=== PATIENT | female | born 1950 | race Caucasian/White ===

== ENCOUNTER 2023-02-18 09:05 | Inpatient (IN) | payer MEDICARE, SELFPAY ==
--- NOTE | ~2023-02-18 | CT_ITS ---
EXAMINATION: CT ABDOMEN AND PELVIS WITHOUT CONTRAST CLINICAL INFORMATION: Left lower quadrant abdominal pain COMPARISON: None available. TECHNIQUE: Multidetector volumetric imaging was performed from the superior aspect of the liver through the pubic symphysis. Sagittal and coronal reformatted images were obtained on the technologist's workstation. This CT examination was performed using dose optimization techniques as appropriate, variously including the following: *Automated exposure control *Adjustment of mA and/or kV according to patient size (this includes techniques or standardized protocols for targeted exams where dose is matched to indication/reason for exam; i.e. extremities or head) *Use of iterative reconstruction technique DLP: 406 mGy-cm FINDINGS: LUNG BASES: The visualized lung bases are unremarkable. LIVER, GALLBLADDER, AND BILIARY TREE: There is low-attenuation 0.9 cm lesion in the left lobe of the liver with attenuation of 3HU and 2.2 cm low-attenuation lesion in the right lobe of the liver with attenuation of 10 a few, consistent with an appearance of cysts or hemangiomas. The gallbladder is unremarkable with no evidence of radiopaque gallstones, gallbladder wall thickening, or obvious pericholecystic inflammatory changes. PANCREAS: Unremarkable. SPLEEN: There is small calcification in the upper pole of spleen most likely granuloma ADRENAL GLANDS: Unremarkable. KIDNEYS AND URETERS: The kidneys are normal in size, shape, and attenuation. No hydronephrosis, hydroureter, or calculi seen. There is calcified lesion in the lower pole of left kidney, measured 1.2 x 1.6 cm. No perinephric stranding. BLADDER: Unremarkable. GASTROINTESTINAL TRACT: Extensive inflammatory changes in the mesentery surrounding sigmoid colon and descending colon with multiple diverticuli consistent with diverticulitis. Microabscess couldn't be excluded. There is no obvious perforation seen. There is large amount of retained feces. Small bowel loops are not dilated and appendix is normal. ABDOMINAL WALL: No significant hernia is appreciated. LYMPH NODES: Normal. VASCULAR: There are atherosclerotic calcifications in abdominal aorta which is not dilated. PELVIC VISCERA: Difficult to evaluate uterus due to inflammatory changes in the surrounding fat extending from extensive diverticulitis. OSSEOUS STRUCTURES: There are extensive multilevel degenerative changes in lumbar spine with grade 1 anterior listhesis of L5 over S1 and bilateral pars defect. There is patchy osteopenia CT/CT abdomen pelvis wo IV con IMPRESSION: 1. Extensive diverticulitis in the descending colon and sigmoid colon. Microabscess couldn't be excluded. 2. Constipation. 3. Calcified lesion in the lower pole of left kidney. 4. 2 cysts or hemangiomas in the liver. 5. Degenerative changes in lumbar spine with grade 1 anterolisthesis of L5 over S1 and bilateral pars defect at L5-S1. Fleischner guidelines were followed.
[2023-02-18 09:35] VITALS: BP 164/67; PULSE 70; RESP 17; TEMP 36.4; O2SAT 99; BMI 22.8
[2023-02-18 09:54] LABS: MANUAL DIFF FLAG NO
[2023-02-18 10:10] LABS: Basophils Absolute Auto 0.1 X10*3/uL (0.0-0.2); Basophils Percent Auto 0.6 % (0-2); Eosinophils Absolute Auto 0.1 X10*3/uL (0.0-0.4); Eosinophils Percent Auto 1.1 % (0-4); Hematocrit 37.6 % (37.0-47.0); Hemoglobin 12.5 g/dl (12.0-16.0); Imm Gran Abs Auto 0.04 X10*3/uL (0.00-0.03); Imm Gran Pct Auto 0.5 % (0.0-0.4); Lymphocytes Absolute Auto 1.8 X10*3/uL (1.2-4.9); Lymphocytes Percent Auto 21.6 % (20-40); Mean Corpuscular HGB Conc 33.2 g/dl (31.0-35.0); Mean Corpuscular Hemoglobin 30.9 pg (27.0-33.0); Mean Corpuscular Volume 92.8 fL (80.0-98.0); Mean Platelet Volume 11.8 fL (9.4-12.3); Monocytes Absolute Auto 0.7 X10*3/uL (0.1-1.2); Monocytes Percent Auto 8.7 % (2-11); Neutrophils Absolute Auto 5.7 x10*3/uL (2.0-8.3); Neutrophils Percent Auto 67.5 % (45-73); Platelet Count 252 X10*3/uL (160-400); Red Blood Count 4.05 X10*6/uL (4.20-5.50); Red Cell Distribution Width 12.2 % (11.0-16.0); White Blood Count 8.4 X10*3/uL (4.8-10.8)
[2023-02-18 10:11] LABS: Alanine Aminotransferase 10 U/L (0-31); Alkaline Phosphatase 90 U/L (39-117); Anion Gap 16 (12-20); Aspartate Amino Transferase 18 U/L (5-31); Bilirubin Total 0.3 mg/dL (0.0-1.0); Blood Urea Nitrogen 11 mg/dL (9-16); Calcium 10.4 mg/dL (8.4-10.2); Carbon Dioxide 23 mmol/L (22-29); Chloride 107 mmol/L (96-108); Creatinine Clr Calc Pharmacy 61.8; Estimated Glomerular Filt Rate > 60; Glucose Random 105 mg/dL (60-115); Potassium 3.7 mmol/L (3.3-5.1); Sodium 142 mmol/L (135-145); Total Protein 7.9 g/dL (6.5-8.0)
--- NOTE | 2023-02-18 10:26 | ED_ITS ---
HPI - General Adult General Chief complaint: General Medical Stated complaint: constipation Time Seen by Provider: 02/18/23 10:04 Source: patient Mode of arrival: ambulatory Limitations: no limitations History of Present Illness HPI narrative: 72-year-old female came in for evaluation of left lower quadrant abdominal pain and decreases bowel . Symptoms started 8-10 days ago pain is localized to the left lower quadrant area with no radiation, patient with history of IBS. patient also did not have a regular normal bowel movement last bowel movement was this a.m. described as a few drops, patient was instructed by her PCP to take laxative which she did had a small bowel movement after. No nausea, no vomiting, no dysuria, no urinary frequency. Related Data Allergies Allergy/AdvReac Type Severity Reaction Status Date / Time latex Allergy hives Unverified 02/18/23 09:44 Review of Systems 2 Review of Systems: All other systems are reviewed and are negative Constitutional: Reports as per HPI and Reports no additional constitutional complaints Eyes: Reports as per HPI and Reports no additional eye complaints Reports system reviewed and no additional complaints, except as documented Cardiovascular: Reports as per HPI and Reports no additional cardiovascular complaints Respiratory: Reports as per HPI and Reports no additional respiratory complaints Gastrointestinal: Reports as per HPI and Reports no additional gastrointestinal complaints Genitourinary: Reports no additional female genitourinary complaints Musculoskeletal: Reports no additional musculoskeletal complaints Skin/Breast: Reports system reviewed and no additional complaints, except as docu Psychiatric: Reports no additional psychiatric complaints Endocrine: Reports no additional endocrine complaints Hematologic/Lymphatic: Reports no additional hematologic/lymphatic complaints Allergic/Immunologic: Reports no additional allergic/immunologic complaints Reports system reviewed and no additional complaints, except as documented and Reports Abnormal speech present [facility] Social History Social History Advance Directives: No Advance Directives Information Provided: No Physical Exam ED Vital Signs: Vital Signs - 24 hr 02/18/23 09:35 02/18/23 11:54 Temperature 97.6 F 97.7 F Pulse Rate 70 66 Respiratory Rate 17 16 Blood Pressure 164/67 H 162/66 H Pulse Oximetry 99 99 Oxygen Delivery Method Room Air Room Air BMI result Body Mass Index 22.8 Vital signs have been reviewed and appear to be correct. Blood pressure elevated. Heart rate normal. Respiratory rate normal. Temperature normal. Oxygen saturation normal. Appearance: Alert. Oriented X3. No acute distress. Head: Normal external exam. Normocephalic. Atraumatic. No Roland signs noted. No raccoon eyes noted Eyes: PERRLA. EOMI. Conjunctiva and sclera normal. Eyelids normal. ENT: TM's Normal. Pharynx normal. Uvula midline. Moist mucous membranes. No trismus noted. No drooling noted. No muffled voice noted. Neck: Normal inspection. Neck supple. FROM. No adenopathy. Thyroid Normal. No meningeal signs. No neck mass noted. CVS: Normal heart rate and rhythm. Heart sound normal. No murmurs noted. Pulses normal throughout. Respiratory: No respiratory distress. Painless inspiration. Breath sounds normal. No wheezes/rales/rhonchi noted. Chest nontender. No accessory muscle usage noted or decreased air movement noted. Abdomen: Soft and nontender. Bowel sounds normal in all 4 quadrants. No distention noted. No organomegaly noted. No visible injury noted. Rectal exam: No hard stool in the vault, brown stool guaiac negative. Back: No CVA tenderness. Full range of motion noted. Skin: Skin warm and dry. Normal skin color. Normal skin turgor. No rashes/lesions/lacerations noted. Extremities: No lower extremity edema. Extremities exhibit normal range of motion. Extremities nontender. Neuro: Oriented X 3. Cranial nerve exam: II-XII are grossly intact No motor deficit. No sensory deficit. Reflexes normal. Course Reevaluation(s) Reevaluation #1: worsening of abdominal pain for the past 8-10 days with decreased bowel movement, CT is revealing acute diverticulitis. Given the patient's age will admit for IV Zosyn and IV hydration and pain control. No sepsis. Time: 13:01 Medical Decision Making Differential Diagnosis Differential Diagnoses: The differential diagnosis associated with the presentation includes ( Colitis, diverticulitis, bowel obstruction, constipation, electrolyte abnormality, severe anemia, sepsis.) Admission/Observation Consideration of admission/observation: Escalation of care including admission/observation considered Consult Healthcare Provider Management of the patient was discussed with: Hospitalist (Dr. alvarado) Lab Data MDM Lab Attestation statement: I reviewed the patient's lab results. 02/18/23 09:50 02/18/23 09:50 Labs: Lab Results 02/18/23 02/18/23 Range/Units 09:50 10:23 WBC 8.4 (4.8-10.8) X10*3/uL RBC 4.05 L (4.20-5.50) X10*6/uL Hgb 12.5 (12.0-16.0) g/dl Hct 37.6 (37.0-47.0) % MCV 92.8 (80.0-98.0) fL MCH 30.9 (27.0-33.0) pg MCHC 33.2 (31.0-35.0) g/dl RDW 12.2 (11.0-16.0) % Plt Count 252 (160-400) X10*3/uL MPV 11.8 (9.4-12.3) fL Immature Gran % (Auto) 0.5 H (0.0-0.4) % Neut % (Auto) 67.5 (45-73) % Lymph % (Auto) 21.6 (20-40) % Hall % (Auto) 8.7 (2-11) % Eos % (Auto) 1.1 (0-4) % Baso % (Auto) 0.6 (0-2) % Lymph # (Auto) 1.8 (1.2-4.9) X10*3/uL Hall # (Auto) 0.7 (0.1-1.2) X10*3/uL Eos # (Auto) 0.1 (0.0-0.4) X10*3/uL Baso # (Auto) 0.1 (0.0-0.2) X10*3/uL Abs Immat Gran (auto) 0.04 H (0.00-0.03) X10*3/uL Absolute Neuts (auto) 5.7 (2.0-8.3) x10*3/uL Absolute Nucleated RBC 0.000 (0.0-0.012) X10*3/uL Nucleated RBC % (auto) 0.0 (0.0-0.2) /100WBC Sodium 142 (135-145) mmol/L Potassium 3.7 (3.3-5.1) mmol/L Chloride 107 (96-108) mmol/L Carbon Dioxide 23 (22-29) mmol/L Anion Gap 16 (12-20) BUN 11 (9-16) mg/dL Creatinine 0.68 (0.5-1.4) mg/dL Estim Creat Clear Calc 61.8 Estimated GFR > 60 Random Glucose 105 (60-115) mg/dL Calcium 10.4 H (8.4-10.2) mg/dL Total Bilirubin 0.3 (0.0-1.0) mg/dL AST 18 (5-31) U/L ALT 10 (0-31) U/L Alkaline Phosphatase 90 (39-117) U/L Total Protein 7.9 (6.5-8.0) g/dL Albumin 4.0 (3.5-5.0) g/dL Stool Occult Blood NEGATIVE (NEGATIVE) Independent Interpretation I performed an independent interpretation of an: CT Scan ( Abdomen pelvis: Sigmoid diverticulitis) Radiology Impression Discussion of test interpretation with radiology: I have reviewed the radiologist's reading. (1. Extensive diverticulitis in the descending colon and sigmoid colon. Microabscess couldn't be excluded. 2. Constipation. 3. Calcified lesion in the lower pole of left kidney. 4. 2 cysts or hemangiomas in the liver. 5. Degenerative changes in lumbar spine with grade 1 anterolisthesis of L5 ove) Discharge Plan Discharge Clinical Impression: Diverticulitis Patient Disposition: Admitted As Inpatient
[2023-02-18 10:44] LABS: OBS Int Ctl Valid YES; OBS1 NEGATIVE (NEGATIVE)
[2023-02-18 11:54] VITALS: BP 162/66; PULSE 66; RESP 16; TEMP 36.5; O2SAT 99
--- NOTE | 2023-02-18 11:56 | PC.NURSE ---
resting quietly in room, respirations even and unlabored. reporting cramping on and off in her abdomen, worse after eating and early in the morning. at this time, the pain is controlled. reading a magazine awaiting results of CT scan.
--- NOTE | 2023-02-18 13:38 | PM.IMHP ---
History of Present Illness Date of Service: 02/18/23 <JOSE ANTONIO Mccain - Last Filed: 02/18/23 13:51> Attending physician on admission: Cyrus Burdick <JOSE ANTONIO Mccain - Last Filed: 02/18/23 13:51> Chief Complaint: abd pain, constipation <JOSE ANTONIO Mccain - Last Filed: 02/18/23 13:51> 72-year-old female with history of hyperlipidemia and irritable bowel syndrome presented to the ED earlier today for evaluation of severe abdominal pain and constipation ongoing for about 8 days. She states she started taking laxatives in symptoms had initially resolved but about 4 days ago recurred. She has been experiencing severe bilateral lower abdominal pain that is no localized primarily in the left lower quadrant with associated abdominal bloating, anorexia, and ongoing constipation. She has been taking laxatives with small bowel movements without any reprieve in symptoms. She rates the pain as a 10/10 without any radiation. Denies any fevers or chills. No nausea or vomiting. Denies any melena or hematochezia. On arrival, p CT of the abdomen/pelvis shows extensive diverticulitis in the descending colon sigmoid colon with microabscesses not to be excluded. There is also constipation. atient hypertensive to 162/66, vitals otherwise normal. There is no leukocytosis. Renal function and electrolyte levels are normal. Stool occult blood is negative. In the ED has received 1 L IV NS, ketorolac, and IV Zosyn. She declines any opioid treatment. <JOSE ANTONIO Mccain - Last Filed: 02/18/23 13:51> Review of Systems Review of Systems: General: No fevers, malaise, unintentional weight loss HEENT: No blurred vision, diplopia. No sore throat, nasal congestion, rhinorrhea, sinus pain, ear pain Cardiovascular: No chest pain, palpitations, or leg edema Respiratory: No shortness of breath, wheezing, cough GI: +abd pain, +constipation. No nausea, vomiting, diarrhea, melena, hematochezia : No dysuria, hematuria, increased urinary frequency, decreased urinary output MSK: No myalgia, back pain Neuro: No headaches, weakness, paresthesias Skin: No rashes or lesions <JOSE ANTONIO Mccain Last Filed: 02/18/23 13:51> [facility] Medical History: Medical History (Updated 02/18/23 @ 13:46 by JOSE ANTONIO Mccain) IBS (irritable bowel syndrome) Hyperlipemia <JOSE ANTONIO Mccain - Last Filed: 02/18/23 13:51> Social History: Social History Household Members: Spouse Housing: House Do you presently have visiting nurse or other home services: No Patient Tobacco Use Status: Never used Tobacco Use of substances other than those prescribed or required for medical reasons: No Currently Displaying Signs/Symptoms of Drug Intoxication Withdrawal: No Have you been hit, kicked, punched, or otherwise hurt by someone within the past year? If so, by whom?: No Do you feel safe in your current relationship?: Yes Is there a partner from a previous relationship who is making you feel unsafe now?: No Are you made to feel afraid or neglected: No Advance Directives: No Advance Directives Information Provided: No Do you have thoughts of harming others: None Do you have a plan to hurt others: No Plan Recently lost weight without trying: No Eating poorly because of decreased appetite: Yes Nutrition Risks: Poor intake 0-25% >4 days Patient : No : No Poor oral hygiene: No <JOSE ANTONIO Mccain - Last Filed: 02/18/23 13:51> Meds Allergies/Adverse reactions: Allergies Allergy/AdvReac Type Severity Reaction Status Date / Time latex Allergy hives Unverified 02/18/23 09:44 <JOSE ANTONIO Mccain - Last Filed: 02/18/23 13:51> Active Medications: Current Medications Acetaminophen (Acetaminophen 325 Mg Tablet) 650 mg PO Q6H PRN PRN Reason: Pain, Mild (Pain Scale 1-3) Heparin Sodium (Porcine) (Heparin Sodium,Porcine 5,000 Unit/Ml Vial) 5,000 unit SUBCUT Q12H ZHENG Sodium Chloride (Ns) 1,000 mls @ 999 mls/hr IV .Q1H1M ONE Stop: 02/18/23 13:58 Piperacillin Sod/Tazobactam (Sod 4.5 gm/ Sodium Chloride) 100 mls @ 200 mls/hr IV Q6H ZHENG Ketorolac Tromethamine (Ketorolac Tromethamine 15 Mg/Ml Vial) 15 mg IVPUSH Q6H PRN PRN Reason: Pain, Moderate(Pain Scale 4-6) Ondansetron HCl (Ondansetron Hcl 4 Mg/2 Ml Vial) 4 mg IVPUSH Q8H PRN PRN Reason: Nausea and Vomiting Sodium Chloride (0.9 % Sodium Chloride Flush 3 Ml Syringe) 3 ml IVFLUSH QSHIFT ZHENG <JOSE ANTONIO Mccain - Last Filed: 02/18/23 13:51> Home medications: Home Medications Medication Instructions Recorded Confirmed Last Taken Type atorvastatin 10 mg tablet 10 mg PO DAILY 02/18/23 02/18/23 Unknown History dicyclomine 20 mg tablet 20 mg PO Q6H 02/18/23 02/18/23 Unknown History <JOSE ANTONIO Mccain - Last Filed: 02/18/23 13:51> Physical Exam Vital Signs and Narrative: Vital Signs: Last Vital Signs Temp 97.7 F 02/18/23 11:54 Pulse 66 02/18/23 11:54 Resp 16 02/18/23 11:54 BP 162/66 H 02/18/23 11:54 Pulse Ox 99 02/18/23 11:54 O2 Del Method Room Air 02/18/23 11:54 BMI result Body Mass Index 22.8 <JOSE ANTONIO Mccain - Last Filed: 02/18/23 13:51> Constitutional - Awake and Alert, No apparent distress Eyes - PERRLA, EOMI Cardiovascular - S1S2, RRR, No edema Respiratory - Normal lung expansion, Normal respiratory effort, No respiratory distress, CTA bilaterally Gastrointestinal - moderate distension with diffuse ttp greatest in LLQ, +BS; No rebound or guarding Extremities - no calf tenderness bilaterally, no swelling Skin - Warm/Dry Neurological - Alert & oriented x3 Psychological - Appropriate affect <JOSE ANTONIO Mccain - Last Filed: 02/18/23 13:51> Results Labs CBC and Chem 7: 02/18/23 09:50 02/19/23 06:13 <JOSE ANTONIO Mccain - Last Filed: 02/18/23 13:51> Labs: Laboratory Results - last 24 hr 02/18/23 02/18/23 09:50 10:23 MCV 92.8 MCH 30.9 MCHC 33.2 RDW 12.2 Plt Count 252 MPV 11.8 Immature Gran % (Auto) 0.5 H Neut % (Auto) 67.5 Lymph % (Auto) 21.6 Osborne % (Auto) 8.7 Eos % (Auto) 1.1 Baso % (Auto) 0.6 Lymph # (Auto) 1.8 Osborne # (Auto) 0.7 Eos # (Auto) 0.1 Baso # (Auto) 0.1 Abs Immat Gran (auto) 0.04 H Absolute Neuts (auto) 5.7 Absolute Nucleated RBC 0.000 Nucleated RBC % (auto) 0.0 Anion Gap 16 Estim Creat Clear Calc 61.8 Estimated GFR > 60 Random Glucose 105 Calcium 10.4 H Total Bilirubin 0.3 AST 18 ALT 10 Alkaline Phosphatase 90 Total Protein 7.9 Albumin 4.0 Stool Occult Blood NEGATIVE <JOSE ANTONIO Mccain - Last Filed: 02/18/23 13:51> Imaging Radiologist's Impressions: Impressions Abdomen/Pelvis CT 02/18/23 10:55 IMPRESSION: 1. Extensive diverticulitis in the descending colon and sigmoid colon. Microabscess couldn't be excluded. 2. Constipation. 3. Calcified lesion in the lower pole of left kidney. 4. 2 cysts or hemangiomas in the liver. 5. Degenerative changes in lumbar spine with grade 1 anterolisthesis of L5 over S1 and bilateral pars defect at L5-S1. Fleischner guidelines were followed. <JOSE ANTONIO Mccain - Last Filed: 02/18/23 13:51> Assessment and Plan (1) Diverticulitis: Status: Acute <JOSE ANTONIO Mccain - Last Filed: 02/18/23 13:51> 72-year-old female with history of hyperlipidemia and irritable bowel syndrome admitted for further management of extensive diverticulitis with microabscesses and intractable pain # acute diverticulitis with probable micro abscesses -CT abdomen/pelvis shows extensive diverticulitis of the sigmoid and descending colon, micro abscesses cannot be excluded -IV Zosyn -IV Ketoralac for pain. Patient refuses opioid therapy -ondansetron p.r.n. -senna, MiraLax for constipation -clear liquid diet -general surgery consult given probable micro abscesses -no leukocytosis, no sepsis # hyperlipidemia -continue statin # IBS -hold dicyclomine for now DVT prophylaxis-Lovenox Full code Patient requires at least 2 midnights for inpatient stay due to extensive diverticulitis with micro abscesses and intractable pain requiring IV antibiotics and expert consultation <JOSE ANTONIO Mccain - Last Filed: 02/18/23 13:51> 72-year-old female with history of hyperlipidemia and irritable bowel syndrome admitted for further management of extensive diverticulitis with microabscesses and intractable pain # acute diverticulitis with probable micro abscesses -CT abdomen/pelvis shows extensive diverticulitis of the sigmoid and descending colon, micro abscesses cannot be excluded -IV Zosyn -IV Ketoralac for pain. Patient refuses opioid therapy -ondansetron p.r.n. -senna, MiraLax for constipation -clear liquid diet -general surgery consult given probable micro abscesses -no leukocytosis, no sepsis # hyperlipidemia -continue statin # IBS -hold dicyclomine for now DVT prophylaxis-Lovenox Full code Patient requires at least 2 midnights for inpatient stay due to extensive diverticulitis with micro abscesses and intractable pain requiring IV antibiotics and expert consultation Addendum to history and physical by the advanced practice provider, JOSE ANTONIO Eckert I interviewed and examined the patient. I discussed their presentation and management with the SHREYAS. I reviewed the history and physical and agree with the documentation, with the following additions and corrections: 72yo F with IBS presenting with abd pain, found to have extensive diverticulitis with likely microabscesses. Plan admit to M/S, give IV pip-kevin, clears. <Cyrus Burdick MD - Last Filed: 02/19/23 10:17> Time Spent With Patient Time: Total time managing care of this patient today ____ minutes. <JOSE ANTONIO Mccain - Last Filed: 02/18/23 13:51> Quality Stroke Does the patient have a stroke diagnosis?: No <JOSE ANTONIO Mccain - Last Filed: 02/18/23 13:51> VTE Prior VTE?: No <JOSE ANTONIO Mccain - Last Filed: 02/18/23 13:51> VTE Risk Level:: Medical - moderate - high <JOSE ANTONIO Mccain - Last Filed: 02/18/23 13:51> VTE Device Contraindication: Treatment Not Indicated <JOSE ANTONIO Mccain - Last Filed: 02/18/23 13:51> VTE Drug Contraindication: N/A - Med Ordered <JOSE ANTONIO Mccain - Last Filed: 02/18/23 13:51>
--- NOTE | 2023-02-18 13:40 | PHA.MEDREC ---
Pharmacy Consult ? Medication Reconciliation Pharmacy has completed the medication reconciliation. spoke with patient to confirm medications. She reports not taking any medications today. She has the Dicyclomine with her today.
--- NOTE | 2023-02-18 13:45 | PHA.MEDREC ---
Pharmacy Consult ? Medication Reconciliation [facility] reviewed Pharmacy has completed the medication reconciliation.
[2023-02-18] MEDS: Ketorolac Tromethamine 15 MG/ML VIAL IVPUSH ×2 (14:01→20:28)
[2023-02-18] MEDS: 0.9 % Sodium Chloride 1,000 ML 999 ML IV (14:01)
[2023-02-18] MEDS: Piperacillin Sodium/Tazobactam 4.5 GM in 0.9 % Sodium Chloride 100 ML IV ×2 (14:01→20:35)
[2023-02-18] MEDS: Heparin Sodium,Porcine 5,000 UNIT/ML VIAL 5000 UNIT SUBCUT (14:01)
[2023-02-18 15:04] VITALS: BP 164/59; PULSE 61; RESP 16; TEMP 36.5; O2SAT 97
[2023-02-18 16:23] LABS: C Reactive Protein 9.41 mg/dL (< or = 0.50)
[2023-02-18 17:58] VITALS: BP 143/62; PULSE 55; RESP 18; TEMP 36.8; O2SAT 97
[2023-02-18] MEDS: 0.9 % Sodium Chloride Flush 3 ML SYRINGE IVFLUSH ×2 (18:42→20:27)
--- NOTE | 2023-02-18 19:11 | PM.CNGS ---
History of Present Illness Consult details Consult date: 02/18/23 Narrative: Patient is 70-year-old female with no prior history of diverticulitis of presents here with approximately 8-10 days of progressive worsening left-sided abdominal pain. She thought this was a gastroenteritis and because of persistence of symptoms, finding presented emergency department for further evaluation. Patient has a history of irritable bowel syndrome. Last colonoscopy was in 2018 she thinks. She does not recall any unusual diets or any sick contacts. Her symptoms have mainly localized to the left lower quadrant. Chart was reviewed patient evaluated CT scan findings are consistent with left colon diverticulitis. [facility] Past Medical History Medical History (Updated 02/18/23 @ 13:46 by JOSE ANTONIO Mccain) IBS (irritable bowel syndrome) Hyperlipemia Social History Social History Household Members: Spouse Housing: House Do you presently have visiting nurse or other home services: No Patient Tobacco Use Status: Never used Tobacco Use of substances other than those prescribed or required for medical reasons: No Have you been hit, kicked, punched, or otherwise hurt by someone within the past year? If so, by whom?: No Do you feel safe in your current relationship?: Yes Is there a partner from a previous relationship who is making you feel unsafe now?: No Are you made to feel afraid or neglected: No Advance Directives: No Advance Directives Information Provided: No Do you have thoughts of harming others: None Do you have a plan to hurt others: No Plan Recently lost weight without trying: No Eating poorly because of decreased appetite: Yes Nutrition Risks: Poor intake 0-25% >4 days Patient : No : No Poor oral hygiene: No Meds Allergies Allergy/AdvReac Type Severity Reaction Status Date / Time latex Allergy hives Unverified 02/18/23 09:44 Active Medications: Current Medications Acetaminophen (Acetaminophen 325 Mg Tablet) 650 mg PO Q6H PRN PRN Reason: Pain, Mild (Pain Scale 1-3) Atorvastatin Calcium (Atorvastatin Calcium 10 Mg Tablet) 10 mg PO DAILY ZHENG Heparin Sodium (Porcine) (Heparin Sodium,Porcine 5,000 Unit/Ml Vial) 5,000 unit SUBCUT Q12H ZHENG Last Admin: 02/18/23 14:01 Dose: 5,000 unit Piperacillin Sod/Tazobactam (Sod 4.5 gm/ Sodium Chloride) 100 mls @ 200 mls/hr IV Q6H [facility] Last Infusion: 02/18/23 15:16 Dose: Infused Ketorolac Tromethamine (Ketorolac Tromethamine 15 Mg/Ml Vial) 15 mg IVPUSH Q6H PRN PRN Reason: Pain, Moderate(Pain Scale 4-6) Last Admin: 02/18/23 14:01 Dose: 15 mg Ondansetron HCl (Ondansetron Hcl 4 Mg/2 Ml Vial) 4 mg IVPUSH Q8H PRN PRN Reason: Nausea and Vomiting Polyethylene Glycol (Polyethylene Glycol 3350 17 Gm Powd.Pack) 17 gm PO DAILY PRN PRN Reason: Constipation Senna (Sennosides 8.6 Mg Tablet) 17.2 mg PO BEDTIME [facility] Sodium Chloride (0.9 % Sodium Chloride Flush 3 Ml Syringe) 3 ml IVFLUSH QSHIFT [facility] Last Admin: 02/18/23 18:42 Dose: 3 ml Home Medications Medication Instructions Recorded Confirmed Last Taken Type atorvastatin 10 mg tablet 10 mg PO DAILY 02/18/23 02/18/23 Unknown History dicyclomine 20 mg tablet 20 mg PO Q6H 02/18/23 02/18/23 Unknown History Physical Exam Vital Signs: Vital Signs: Last Vital Signs Temp 98.2 F 02/18/23 17:58 Pulse 55 02/18/23 17:58 Resp 18 02/18/23 17:58 BP 143/62 H 02/18/23 17:58 Pulse Ox 97 02/18/23 17:58 O2 Del Method Room Air 02/18/23 17:58 BMI result Body Mass Index 22.8 GI: Other: Moderate left lower quadrant tenderness localized. No evidence of any acute abdomen guarding rebound or rigidity. Results Labs 02/18/23 09:50 02/18/23 09:50 Labs: Abnormal lab results 02/18/23 Range/Units 09:50 RBC 4.05 L (4.20-5.50) X10*6/uL Immature Gran % (Auto) 0.5 H (0.0-0.4) % Abs Immat Gran (auto) 0.04 H (0.00-0.03) X10*3/uL Calcium 10.4 H (8.4-10.2) mg/dL C-Reactive Protein 9.41 H (< or = 0.50) mg/dL Short CBC 02/18/23 Range/Units 09:50 WBC 8.4 (4.8-10.8) X10*3/uL Hgb 12.5 (12.0-16.0) g/dl Hct 37.6 (37.0-47.0) % Plt Count 252 (160-400) X10*3/uL BMP 02/18/23 09:50 Sodium 142 Potassium 3.7 Chloride 107 Carbon Dioxide 23 BUN 11 Creatinine 0.68 Calcium 10.4 H Liver Function 02/18/23 Range/Units 09:50 Total Bilirubin 0.3 (0.0-1.0) mg/dL AST 18 (5-31) U/L ALT 10 (0-31) U/L Alkaline Phosphatase 90 (39-117) U/L Albumin 4.0 (3.5-5.0) g/dL All other labs normal. Assessment and Plan (1) Diverticulitis: Status: Acute Plan Current plan is the patient is being admitted. Clear liquids, broad-spectrum IV antibiotics, serial labs and exams. Further interventions and studies will be directed by the patient's clinical course. Time Spent With Patient Time: Total time managing care of this patient today ____ minutes. Procedures Date of Service Date of Service: 02/18/23
[2023-02-18 20:00] VITALS: BP 155/71; PULSE 57; RESP 20; TEMP 36; O2SAT 99
[2023-02-18] MEDS: Sennosides 8.6 MG TABLET 17.2 MG PO (20:27)
[2023-02-18 22:19] LABS: Appearance Urine Clear; Color Urine Yellow; Glucose Urine UA Negative (Negative); Leukocyte Esterase Urine Negative (Negative); Nitrite Urine Negative (Negative); UMIC TRIGGER UACC YES; Urine Blood Moderate (2+) (Negative); Urine Ketones Negative (Negative); Urine Protein Negative (Neg-Trace)
[2023-02-18 22:40] LABS: Bacteria Urine None Seen (None Seen); Hyaline Casts Urine 0-2 /LPF (0-2); RBC Urine >20 /HPF (0-2); Squamous Epithelial Cell Urine 0-2 /HPF (0-2); WBC Urine 0-5 /HPF (0-5)
[2023-02-19 03:00] VITALS: BP 129/63; PULSE 52; RESP 18; TEMP 36.5; O2SAT 95
[2023-02-19] MEDS: Piperacillin Sodium/Tazobactam 4.5 GM in 0.9 % Sodium Chloride 100 ML IV ×4 (03:03→19:55)
[2023-02-19 07:30] LABS: Alanine Aminotransferase 10 U/L (0-31); Albumin Level 3.3 g/dL (3.5-5.0); Alkaline Phosphatase 69 U/L (39-117); Anion Gap 14 (12-20); Aspartate Amino Transferase 15 U/L (5-31); Bilirubin Total 0.4 mg/dL (0.0-1.0); Blood Urea Nitrogen 8 mg/dL (9-16); Calcium 8.9 mg/dL (8.4-10.2); Carbon Dioxide 22 mmol/L (22-29); Chloride 111 mmol/L (96-108); Creatinine Clr Calc Pharmacy 67.8; Estimated Glomerular Filt Rate > 60; Glucose Random 93 mg/dL (60-115); Potassium 3.5 mmol/L (3.3-5.1); Sodium 143 mmol/L (135-145); Total Protein 6.3 g/dL (6.5-8.0)
[2023-02-19 07:35] VITALS: BP 138/63; PULSE 55; RESP 16; TEMP 36.5; O2SAT 97
[2023-02-19] MEDS: 0.9 % Sodium Chloride Flush 3 ML SYRINGE IVFLUSH (08:17)
[2023-02-19] MEDS: Atorvastatin Calcium 10 MG TABLET PO (08:24)
--- NOTE | 2023-02-19 10:17 | P.PNIM_ITS ---
Subjective Subjective Date of Service: 02/19/23 Interval History: C/o LLQ pain, discomfort, anorexia. Review of Systems Review of Systems: Yes all other systems are reviewed and are negative Physical Exam 2 Vital Signs: Vital Signs: Last Vital Signs Temp 97.7 F 02/19/23 07:35 Pulse 55 02/19/23 07:35 Resp 16 02/19/23 07:35 BP 138/63 02/19/23 07:35 Pulse Ox 97 02/19/23 07:35 O2 Del Method Room Air 02/19/23 07:35 BMI result Body Mass Index 22.8 Gen: in no acute distress HEENT: sclera anicteric, moist mucus membranes Neck: supple Lungs: clear to auscultation bilaterally Heart: regular rate and rhythm, no murmurs Abd: soft, LLQ tender, non-distended Ext: no edema Skin: warm/well-perfused Neuro: alert and oriented x3, no focal findings Psych: appropriate affect Objective Data Active Medications Acetaminophen (Acetaminophen 325 Mg Tablet) 650 mg PO Q6H PRN PRN Reason: Pain, Mild (Pain Scale 1-3) Atorvastatin Calcium (Atorvastatin Calcium 10 Mg Tablet) 10 mg PO DAILY [facility] Last Admin: 02/19/23 08:24 Dose: 10 mg Documented By: CANDICE Heparin Sodium (Porcine) (Heparin Sodium,Porcine 5,000 Unit/Ml Vial) 5,000 unit SUBCUT Q12H [facility] Last Admin: 02/19/23 01:54 Dose: Not Given Documented By: JOAN Non-Admin Reason: pt refused, pt ambulates independently Piperacillin Sod/Tazobactam (Sod 4.5 gm/ Sodium Chloride) 100 mls @ 200 mls/hr IV Q6H [facility] Last Infusion: 02/19/23 09:14 Dose: Infused Documented By: CANDICE Ketorolac Tromethamine (Ketorolac Tromethamine 15 Mg/Ml Vial) 15 mg IVPUSH Q6H PRN PRN Reason: Pain, Moderate(Pain Scale 4-6) Last Admin: 02/18/23 20:28 Dose: 15 mg Documented By: JOAN Ondansetron HCl (Ondansetron Hcl 4 Mg/2 Ml Vial) 4 mg IVPUSH Q8H PRN PRN Reason: Nausea and Vomiting Polyethylene Glycol (Polyethylene Glycol 3350 17 Gm Powd.Pack) 17 gm PO DAILY PRN PRN Reason: Constipation Senna (Sennosides 8.6 Mg Tablet) 17.2 mg PO BEDTIME [facility] Last Admin: 02/18/23 20:27 Dose: 17.2 mg Documented By: JOAN Sodium Chloride (0.9 % Sodium Chloride Flush 3 Ml Syringe) 3 ml IVFLUSH QSHIFT [facility] Last Admin: 02/19/23 08:17 Dose: 3 ml Documented By: CANDICE Labs 02/18/23 09:50 02/19/23 06:13 Labs: Laboratory Results - last 24 hr 02/18/23 02/18/23 02/18/23 09:50 10: 22:11 Anion Gap Estim Creat Clear Calc Estimated GFR Random Glucose Calcium Total Bilirubin AST ALT Alkaline Phosphatase C-Reactive Protein 9.41 H Total Protein Albumin Urine Color Yellow Urine Appearance Clear Urine pH 7.0 Ur Specific [place] 1.010 Urine Protein Negative Urine Glucose (UA) Negative Urine Ketones Negative Urine Blood Moderate (2+) H Urine Nitrite Negative Ur Leukocyte Esterase Negative Urine RBC >20 H Urine WBC 0-5 Ur Squamous Epith Cells 0-2 Urine Bacteria None Seen Hyaline Casts 0-2 Stool Occult Blood NEGATIVE 02/19/23 06:13 Anion Gap 14 Estim Creat Clear Calc 67.8 Estimated GFR > 60 Random Glucose 93 Calcium 8.9 D Total Bilirubin 0.4 AST 15 ALT 10 Alkaline Phosphatase 69 C-Reactive Protein Total Protein 6.3 L Albumin 3.3 L Urine Color Urine Appearance Urine pH Ur Specific [place] Urine Protein Urine Glucose (UA) Urine Ketones Urine Blood Urine Nitrite Ur Leukocyte Esterase Urine RBC Urine WBC Ur Squamous Epith Cells Urine Bacteria Hyaline Casts Stool Occult Blood Assessment and Plan (1) Diverticulitis: Status: Acute Plan d2 72yo F with IBS, HLD admitted for extensive sigmoid/descending colon diverticulitis with likely microabscesses acute diverticulitis - pip-kevin d2, clear liquid diet, IV fluids, outpt GI eval for colonoscopy HLD - statin VTE ppx - LMWH dispo - eventual home In my clinical judgment, the patient requires continued inpatient hospitalization for the following reasons: IV ABX, IV fluids Time Spent With Patient Time: Total time managing care of this patient today ___35_ minutes. Quality Stroke Does the patient have a stroke diagnosis?: No VTE Prior VTE?: No VTE Risk Level:: Medical - moderate - high VTE Device Contraindication: Treatment Not Indicated VTE Drug Contraindication: N/A - Med Ordered
[2023-02-19] MEDS: Lactated Ringers 1,000 ML 80 ML IVCONT ×2 (11:23→23:26)
[2023-02-19] MEDS: Enoxaparin Sodium 40 MG/0.4 ML SYRINGE SUBCUT (11:23)
--- NOTE | 2023-02-19 14:41 | P.PNGS_ITS ---
Subjective Subjective Date of Service: 02/19/23 Interval history: Abdominal symptoms much improved. Passing some flatus and stool. Physical Exam 2 Vital Signs: Vital Signs: Last Vital Signs Temp 97.7 F 02/19/23 07:35 Pulse 55 02/19/23 07:35 Resp 16 02/19/23 07:35 BP 138/63 02/19/23 07:35 Pulse Ox 97 02/19/23 07:35 O2 Del Method Room Air 02/19/23 07:35 BMI result Body Mass Index 22.8 GI: Other: Abdomen soft. Very minimal left lower quadrant tenderness. Much improved from yesterday. Objective Data Active Medications Acetaminophen (Acetaminophen 325 Mg Tablet) 650 mg PO Q6H PRN PRN Reason: Pain, Mild (Pain Scale 1-3) Atorvastatin Calcium (Atorvastatin Calcium 10 Mg Tablet) 10 mg PO DAILY [facility] Last Admin: 02/19/23 08:24 Dose: 10 mg Documented By: CANDICE Enoxaparin Sodium (Enoxaparin Sodium 40 Mg/0.4 Ml Syringe) 40 mg SUBCUT Q24H [facility] Last Admin: 02/19/23 11:23 Dose: 40 mg Documented By: CANDICE Piperacillin Sod/Tazobactam (Sod 4.5 gm/ Sodium Chloride) 100 mls @ 200 mls/hr IV Q6H [facility] Last Admin: 02/19/23 14:20 Dose: 200 mls/hr Documented By: CANDICE Lactated Ringer's (Lr) 1,000 mls @ 80 mls/hr IVCONT .[id number] [facility] Last Admin: 02/19/23 11:23 Dose: 80 mls/hr Documented By: CANDICE Ketorolac Tromethamine (Ketorolac Tromethamine 15 Mg/Ml Vial) 15 mg IVPUSH Q6H PRN PRN Reason: Pain, Moderate(Pain Scale 4-6) Last Admin: 02/18/23 20:28 Dose: 15 mg Documented By: JOAN Ondansetron HCl (Ondansetron Hcl 4 Mg/2 Ml Vial) 4 mg IVPUSH Q8H PRN PRN Reason: Nausea and Vomiting Polyethylene Glycol (Polyethylene Glycol 3350 17 Gm Powd.Pack) 17 gm PO DAILY PRN PRN Reason: Constipation Senna (Sennosides 8.6 Mg Tablet) 17.2 mg PO BEDTIME [facility] Last Admin: 02/18/23 20:27 Dose: 17.2 mg Documented By: JOAN Sodium Chloride (0.9 % Sodium Chloride Flush 3 Ml Syringe) 3 ml IVFLUSH QSHIFT [facility] Last Admin: 02/19/23 08:17 Dose: 3 ml Documented By: CANDICE Labs 02/18/23 09:50 02/19/23 06:13 Labs: Laboratory Results - last 24 hr 02/18/23 02/18/23 02/19/23 09:50 22:11 06:13 Anion Gap 14 Estim Creat Clear Calc 67.8 Estimated GFR > 60 Random Glucose 93 Calcium 8.9 D Total Bilirubin 0.4 AST 15 ALT 10 Alkaline Phosphatase 69 C-Reactive Protein 9.41 H Total Protein 6.3 L Albumin 3.3 L Urine Color Yellow Urine Appearance Clear Urine pH 7.0 Ur Specific [place] 1.010 Urine Protein Negative Urine Glucose (UA) Negative Urine Ketones Negative Urine Blood Moderate (2+) H Urine Nitrite Negative Ur Leukocyte Esterase Negative Urine RBC >20 H Urine WBC 0-5 Ur Squamous Epith Cells 0-2 Urine Bacteria None Seen Hyaline Casts 0-2 Procedures Date of Service Date of Service: 02/19/23 Progress Note: A&P Assessment and plan (1) Diverticulitis: Status: Acute Plan Continue current plan; IV antibiotics, sips p.o. liquids, out of bed, incentive spirometry, serial labs and exams. Time Spent With Patient Time: Total time managing care of this patient today ____ minutes. Quality Stroke Does the patient have a stroke diagnosis?: No VTE Prior VTE?: No VTE Risk Level:: Medical - moderate - high VTE Device Contraindication: Treatment Not Indicated VTE Drug Contraindication: N/A - Med Ordered
--- NOTE | 2023-02-19 15:41 | MHC.CM.PN ---
PT REPORTS SHE LIVES WITH HER AND IS INDEPENDENT WITH CARE SHE HAS NO DME AND NO HOME SERVICES PT REPORTS SHE THINKS SHE HAS A HCP, SHE WILL HAVE HER CHECK PCP: JOSE IVERSON IMM DELIVERED DCP: HOME NO SERVICES CAR IS IN LOT
[2023-02-19 15:45] VITALS: BP 136/65; PULSE 53; RESP 16; TEMP 36.1; O2SAT 97
[2023-02-19] MEDS: Sennosides 8.6 MG TABLET 17.2 MG PO (19:57)
[2023-02-19 20:00] VITALS: BP 163/69; PULSE 51; RESP 18; TEMP 36.3; O2SAT 98
[2023-02-20] MEDS: Piperacillin Sodium/Tazobactam 4.5 GM in 0.9 % Sodium Chloride 100 ML IV ×2 (01:42→08:03)
[2023-02-20 04:00] VITALS: BP 136/64; PULSE 54; RESP 18; TEMP 36.3; O2SAT 96
[2023-02-20 07:06] VITALS: BP 155/69; PULSE 59; RESP 18; TEMP 36.6; O2SAT 97
--- NOTE | 2023-02-20 07:54 | P.PNGS_ITS ---
Subjective Subjective Date of Service: 02/20/23 Interval history: Feeling overall much improved. Currently denies abdominal pain. Tolerating liquids and feels hungry. Had soft formed stool yesterday. Physical Exam 2 Vital Signs: Vital Signs: Last Vital Signs Temp 97.9 F 02/20/23 07:06 Pulse 59 02/20/23 07:06 Resp 18 02/20/23 07:06 BP 155/69 H 02/20/23 07:06 Pulse Ox 97 02/20/23 07:06 O2 Del Method Room Air 02/20/23 07:06 BMI result Body Mass Index 22.8 Const: General: comfortable, no acute distress and alert O rientation/consciousness: patient oriented x3 Resp: Effort & Inspection: normal respiratory effort GI: Inspection: No distended Palpation (GI): Soft to palpation, Tenderness to palpation present (GI) (very mild LLQ), no guarding and not rigid P ercussion: Yes normal to percussion Skin: General skin exam: no rashes or lesions noted Neuro: General: patient oriented x3 and moves all extremities Objective Data Active Medications Acetaminophen (Acetaminophen 325 Mg Tablet) 650 mg PO Q6H PRN PRN Reason: Pain, Mild (Pain Scale 1-3) Atorvastatin Calcium (Atorvastatin Calcium 10 Mg Tablet) 10 mg PO DAILY [facility] Last Admin: 02/19/23 08:24 Dose: 10 mg Documented By: CANDICE Enoxaparin Sodium (Enoxaparin Sodium 40 Mg/0.4 Ml Syringe) 40 mg SUBCUT Q24H [facility] Last Admin: 02/19/23 11:23 Dose: 40 mg Documented By: CANDICE Piperacillin Sod/Tazobactam (Sod 4.5 gm/ Sodium Chloride) 100 mls @ 200 mls/hr IV Q6H [facility] Last Infusion: 02/20/23 02:44 Dose: Infused Documented By: CRISTIN Lactated Ringer's (Lr) 1,000 mls @ 80 mls/hr IVCONT .[id number] [facility] Last Admin: 02/19/23 23:26 Dose: 80 mls/hr Documented By: CRISTIN Ketorolac Tromethamine (Ketorolac Tromethamine 15 Mg/Ml Vial) 15 mg IVPUSH Q6H PRN PRN Reason: Pain, Moderate(Pain Scale 4-6) Last Admin: 02/18/23 20:28 Dose: 15 mg Documented By: JOAN Ondansetron HCl (Ondansetron Hcl 4 Mg/2 Ml Vial) 4 mg IVPUSH Q8H PRN PRN Reason: Nausea and Vomiting Polyethylene Glycol (Polyethylene Glycol 3350 17 Gm Powd.Pack) 17 gm PO DAILY PRN PRN Reason: Constipation Senna (Sennosides 8.6 Mg Tablet) 17.2 mg PO BEDTIME [facility] Last Admin: 02/19/23 19:57 Dose: 17.2 mg Documented By: CRISTIN Sodium Chloride (0.9 % Sodium Chloride Flush 3 Ml Syringe) 3 ml IVFLUSH QSHIFT [facility] Last Admin: 02/19/23 23:56 Dose: Not Given Documented By: CRISTIN Non-Admin Reason: IV Running Labs 02/18/23 09:50 02/19/23 06:13 Procedures Date of Service Date of Service: 02/20/23 Progress Note: A&P Assessment and plan (1) Diverticulitis: Status: Acute Plan 72 year old female admitted with sigmoid diverticulitis. Doing well and improving with nonoperative measures. Cont IV abx, advance to solid diet. If tolerating without worsening abd pain, stable for dc to home from surgical standpoint with PO abx. Time Spent With Patient Time: Total time managing care of this patient today ____ minutes. Quality Stroke Does the patient have a stroke diagnosis?: No VTE Prior VTE?: No VTE Risk Level:: Medical - moderate - high VTE Device Contraindication: Treatment Not Indicated VTE Drug Contraindication: N/A - Med Ordered
[2023-02-20] MEDS: 0.9 % Sodium Chloride Flush 3 ML SYRINGE IVFLUSH (08:03)
[2023-02-20] MEDS: Atorvastatin Calcium 10 MG TABLET PO (08:03)
--- NOTE | 2023-02-20 11:36 | P.DS_ITS ---
DS: Providers Provider Date of Service: 02/20/23 Date of admission: 02/18/23 13:31 Date of discharge: 02/20/23 Primary care physician: Madyson Martinez MD Consults: 02/18/23 13:36 Consult to General Surgery Routine Consulting Provider: [facility] General Surgeons Reason for consultation: diverticulitis, microabscesses DS: Diagnosis Discharge Diagnosis (1) Diverticulitis: Status: Acute DS: Summary Hospital Course Hospital Course: From the history and physical by the admitting hospitalist, JOSE ANTONIO Eckert, 02/18/23: 72-year-old female with history of hyperlipidemia and irritable bowel syndrome presented to the ED earlier today for evaluation of severe abdominal pain and constipation ongoing for about 8 days. She states she started taking laxatives in symptoms had initially resolved but about 4 days ago recurred. She has been experiencing severe bilateral lower abdominal pain that is no localized primarily in the left lower quadrant with associated abdominal bloating, anorexia, and ongoing constipation. She has been taking laxatives with small bowel movements without any reprieve in symptoms. She rates the pain as a 10/10 without any radiation. Denies any fevers or chills. No nausea or vomiting. Denies any melena or hematochezia. On arrival, p CT of the abdomen/pelvis shows extensive diverticulitis in the descending colon sigmoid colon with microabsc esses not to be excluded. There is also constipation. atient hypertensive to 162/66, vitals otherwise normal. There is no leukocytosis. Renal function and electrolyte levels are normal. Stool occult blood is negative. In the ED has received 1 L IV NS, ketorolac, and IV Zosyn. She declines any opioid treatment. 72yo F with IBS and HLD admitted for extensive sigmoid/descending colon divert iculitis with likely microabscesses. She was treated with IV fluids, piperacillin-tazobactam, and clear liquid diet. She was advanced to solids, then discharged home on amoxicillin-clavulanate. She will need outpatient Gastroenterology evaluation for colonoscopy. Time Spent with Patient Time attestation: Total time managing care of this patient today __35__ minutes. Discharge coordination time: Greater than 30 minutes Quality: Safe Use of Opioids Does Pt have an Active Cancer Diagnosis on the Problem List?: No Quality: Stroke Does the patient have a stroke diagnosis?: No Physical Exam Vital Signs: Vital Signs: Last Vital Signs Temp 97.9 F 02/20/23 07:06 Pulse 59 02/20/23 07:06 Resp 18 02/20/23 07:06 BP 155/69 H 02/20/23 07:06 Pulse Ox 97 02/20/23 07:06 O2 Del Method Room Air 02/20/23 07:06 BMI result Body Mass Index 22.8 Gen: in no acute distress HEENT: sclera anicteric, moist mucus membranes Neck: supple Lungs: clear to auscultation bilaterally Heart: regular rate and rhythm, no murmurs Abd: soft, non-tender, non-distended Ext: no edema Skin: warm/well-perfused Neuro: alert and oriented x3, no focal findings Psych: appropriate affect DS: Data Data Completed and Pending Completed studies during hospitalization [Text1]: Laboratory Results WBC 8.4 X10*3/uL (4.8-10.8) 02/18/23 09:50 RBC 4.05 X10*6/uL (4.20-5.50) L 02/18/23 09:50 Hgb 12.5 g/dl (12.0-16.0) 02/18/23 09:50 Hct 37.6 % (37.0-47.0) 02/18/23 09:50 MCV 92.8 fL (80.0-98.0) 02/18/23 09:50 MCH 30.9 pg (27.0-33.0) 02/18/23 09:50 MCHC 33.2 g/dl (31.0-35.0) 02/18/23 09:50 RDW 12.2 % (11.0-16.0) 02/18/23 09:50 Plt Count 252 X10*3/uL (160-400) 02/18/23 09:50 MPV 11.8 fL (9.4-12.3) 02/18/23 09:50 Immature Gran % (Auto) 0.5 % (0.0-0.4) H 02/18/23 09:50 Neut % (Auto) 67.5 % (45-73) 02/18/23 09:50 Lymph % (Auto) 21.6 % (20-40) 02/18/23 09:50 [place] % (Auto) 8.7 % (2-11) 02/18/23 09:50 Eos % (Auto) 1.1 % (0-4) 02/18/23 09:50 Baso % (Auto) 0.6 % (0-2) 02/18/23 09:50 Lymph # (Auto) 1.8 X10*3/uL (1.2-4.9) 02/18/23 09:50 [place] # (Auto) 0.7 X10*3/uL (0.1-1.2) 02/18/23 09:50 Eos # (Auto) 0.1 X10*3/uL (0.0-0.4) 02/18/23 09:50 Baso # (Auto) 0.1 X10*3/uL (0.0-0.2) 02/18/23 09:50 Abs Immat Gran (auto) 0.04 X10*3/uL (0.00-0.03) H 02/18/23 09:50 Absolute Neuts (auto) 5.7 x10*3/uL (2.0-8.3) 02/18/23 09:50 Absolute Nucleated RBC 0.000 X10*3/uL (0.0-0.012) 02/18/23 09:50 Nucleated RBC % (auto) 0.0 /100WBC (0.0-0.2) 02/18/23 09:50 Sodium 143 mmol/L (135-145) 02/19/23 06:13 Potassium 3.5 mmol/L (3.3-5.1) 02/19/23 06:13 Chloride 111 mmol/L (96-108) H 02/19/23 06:13 Carbon Dioxide 22 mmol/L (22-29) 02/19/23 06:13 Anion Gap 14 (12-20) 02/19/23 06:13 BUN 8 mg/dL (9-16) L 02/19/23 06:13 Creatinine 0.62 mg/dL (0.5-1.4) 02/19/23 06:13 Estim Creat Clear Calc 67.8 02/19/23 06:13 Estimated GFR > 60 02/19/23 06:13 Random Glucose 93 mg/dL (60-115) 02/19/23 06:13 Calcium 8.9 mg/dL (8.4-10.2) D 02/19/23 06:13 Total Bilirubin 0.4 mg/dL (0.0-1.0) 02/19/23 06:13 AST 15 U/L (5-31) 02/19/23 06:13 ALT 10 U/L (0-31) 02/19/23 06:13 Alkaline Phosphatase 69 U/L (39-117) 02/19/23 06:13 C-Reactive Protein 9.41 mg/dL (< or = 0.50) H 02/18/23 09:50 Total Protein 6.3 g/dL (6.5-8.0) L 02/19/23 06:13 Albumin 3.3 g/dL (3.5-5.0) L 02/19/23 06:13 Urine Color Yellow 02/18/23 22:11 Urine Appearance Clear 02/18/23 22:11 Urine pH 7.0 (5.0-9.0) 02/18/23 22:11 Ur Specific [place] 1.010 (1.005-1.025) 02/18/23 22:11 Urine Protein Negative mg/dL (Neg-Trace) 02/18/23 22:11 Urine Glucose (UA) Negative mg/dL (Negative) 02/18/23 22:11 Urine Ketones Negative mg/dL (Negative) 02/18/23 22:11 Urine Blood Moderate (2+) (Negative) H 02/18/23 22:11 Urine Nitrite Negative (Negative) 02/18/23 22:11 Ur Leukocyte Esterase Negative (Negative) 02/18/23 22:11 Urine RBC >20 /HPF (0-2) H 02/18/23 22:11 Urine WBC 0-5 /HPF (0-5) 02/18/23 22:11 Ur Squamous Epith Cells 0-2 /HPF (0-2) 02/18/23 22:11 Urine Bacteria None Seen (None Seen) 02/18/23 22:11 Hyaline Casts 0-2 /LPF (0-2) 02/18/23 22:11 Stool Occult Blood NEGATIVE (NEGATIVE) 02/18/23 10:23 Impressions Abdomen/Pelvis CT 02/18/23 10:55 IMPRESSION: 1. Extensive diverticulitis in the descending colon and sigmoid colon. Microabscess couldn't be excluded. 2. Constipation. 3. Calcified lesion in the lower pole of left kidney. 4. 2 cysts or hemangiomas in the liver. 5. Degenerative changes in lumbar spine with grade 1 anterolisthesis of L5 over S1 and bilateral pars defect at L5-S1. Fleischner guidelines were followed. Discharge Plan Discharge Anticipated Discharge Date/Time: 02/20/23 11:27 Patient Disposition: Home, Self-Care Discharge Diagnosis: acute diverticulitis Referrals: Madyson Martinez MD [Primary Care Provider] - 1 Week Brooke Feldman MD [Physician] - 2 Weeks Discharge Medications: New amoxicillin-pot clavulanate 875-125 mg tablet 1 tab PO BID Qty: 10 0RF Continued atorvastatin 10 mg tablet 10 mg PO DAILY dicyclomine 20 mg tablet 20 mg PO Q6H Discharge Orders: Discharge Order (Routine); Ordered 02/20/23 Ordered By: Cyrus Burdick Diet: Advance to usual diet Activity on Discharge: As tolerated Stand Alone Forms: Patient Portal Discharge page Care Plan Goals: recovery from diverticulitis Health Concerns: diverticulitis Plan of Treatment: amoxicillin-clavulanate 875-125 mg twice daily for 5 days follow up with [facility] Gastroenterology [Dr Feldman] in 2 weeks- consider colonoscopy Please follow up with your primary care doctor within 1 week. Return to the hospital if you experience recurrent or worsening symptoms. Assessment: See Discharge Summary.
--- NOTE | 2023-02-20 13:37 | MHC.CM.PN ---
Pt is medically cleared for DC. She is going home via her family, self care.
== END 2023-02-20 14:18 | disposition home or self-care (01) | DRG 392 ==
LOC: HO.ED 13:00 → HO.EDOVER 13:40 → HO.S3 16:34
PROVIDERS: Admitting Provider Physician Assistant; Emergency Provider Emergency Medicine; PCP Internal Medicine; Visit Provider Family Medicine
DX: K57.20 Diverticulitis of large intestine with perforation and abscess without bleeding (principal); E78.5 Hyperlipidemia, unspecified; K58.9 Irritable bowel syndrome, unspecified; Z91.040 Latex allergy status; Z79.899 Other long term (current) drug therapy
CPT/HCPCS: 36415; 74176; 80053; 81001; 82272; 85025; 86140; 99285; J1643; J1650; J1885; J2543

== ENCOUNTER → 2023-02-18 13:31 | Outpatient (BNV) | payer MEDICARE, SELFPAY | PROVIDERS: Admitting Provider Physician Assistant; Emergency Provider Emergency Medicine; PCP Internal Medicine; Visit Provider Surgery | DX: K57.92 Diverticulitis of intestine, part unspecified, without perforation or abscess without bleeding (principal) | CPT/HCPCS: 99222; 99232 ==

== ENCOUNTER → 2023-02-18 13:31 | Outpatient (BNV) | payer MEDICARE, SELFPAY | PROVIDERS: Admitting Provider Physician Assistant; Emergency Provider Emergency Medicine; PCP Internal Medicine; Visit Provider Physician Assistant | DX: K57.92 Diverticulitis of intestine, part unspecified, without perforation or abscess without bleeding (principal) | CPT/HCPCS: 99223; 99232; 99239 ==

== ENCOUNTER 2023-03-08 13:15 | Outpatient (AMB) | payer MEDICARE, SELFPAY ==
--- NOTE | 2023-03-08 13:17 | MHC.OFFVIS ---
Intake Vital Signs 03/08/23 13:21 Height 5 ft 2 in Weight 125 lb 10.616 oz BMI 23.0 BP 162/65 H Blood Pressure Location Lt brachial Position Sitting Pulse 61 Intake Visit Reasons: Diverticulitis, ED follow up Intake Note: Sheyla presents in the office as a ED Follow up. CC: She was diagnosed with Diverticulitis in the ED. She states they are also questioning some colon issues. Allergies latex Allergy (Unverified 02/18/23 09:44) hives narcotics Allergy (Mild, Uncoded 03/08/23 13:22) unkno HPI HPI Comments History of Present Illness Details This is a 72y.o F with no significant PMH who is here to establish care after hospitalization for acute diverticulitis. To recap pt was seen in the ER for persistent LLQ with constipation ongoing for almost 8 days and was found to have acute diverticulitis involving the left side of the colon. With this no fevers or chills. Was admitted to the hospital for 2 days and then discharged on PO Augmentin. Reports persistent cramping for many days despite completing Abx but now back to baseline. Worries if she has to restrict her diet and activity due to this. Last colo 2017 (Dr Curtis) - was given a 10y interval per her recall. Does not remember being told about diverticulosis in the past. No fam hx of CRC in FDRs. PFSH Medical History (Updated 02/28/23 @ 00:02 by Anusha Dotson) IBS (irritable bowel syndrome) Hyperlipemia Surgical History (Updated 03/08/23 @ 13:22 by TYLER Holly) Hx of colonoscopy Social History Household Members: Spouse Housing: House Do you presently have visiting nurse or other home services: No Patient Tobacco Use Status: Never used Tobacco service: No Review of Systems Const All systems reviewed & are unremarkable except as noted in HPI and below Physical Exam Vital Signs: Last Vital Signs Pulse 61 03/08/23 13:21 BP 162/65 H 03/08/23 13:21 BMI result Body Mass Index 23.0 Gen appear: NAD HEENT: nonicteric, no cervical lymphadenopathy Chest: CTA CVS: Regular S1/S2 Abd: soft, nontender, nondistended, bowel sounds + Ext: no peripheral edema Neuro: A/Ox3, noted to move all extremities spontaneously Psych: interacting appropriately Assessment & Plan Assessment & Plan (1) Diverticulitis: Code(s): K57.92 - Diverticulitis of intestine, part unspecified, without perforation or abscess without bleeding Plan Here primarily to discuss post-diverticulitis care and colonoscopy. Otherwise in excellent health. Was counseled that a follow up colo is indicated to r/o malignancy mimicking diverticulitis. This will be booked after 8 weeks from her diverticulitis episode to mitigate the theoretical risk of perforation. Plan: - [place] to be booked - msg sent - Split PEG prep instructions reviewed and handout given - Was also educated to keep a high fiber diet and to limit etOH and red meat - She was also informed that while no data to recommend restriction of corn/nuts/seeds etc, cont to avoid if they dont agree with her - No activity restriction indicated at this time - Bentyl refilled to be taken PRN for IBS related abd cramping (prev GI Dr Curtis has retired) Follow up after colo as needed Medications: New peg 3350-electrolytes 236-22.74-6.74 -5.86 gram (Golytely) as per split prep instructions, until fecal effluent is clear 240 mL PO Q10M 4,000 mL 0RF colonoscopy Changed From dicyclomine 20 mg PO Q6H To dicyclomine 20 mg PO Q6H PRN 90 tabs 1RF abdominal pain Discontinued amoxicillin-pot clavulanate 875-125 mg Discontinued Reason: Patient Completed Course 1 tab PO BID 10 tabs 0RF Coding Level of Care Code New Pt Level 4 (13363) Diagnoses Diverticulitis K57.92
[2023-03-08 13:21] VITALS: BP 162/65; PULSE 61; BMI 23.0
== END 2023-03-08 15:49 | disposition home or self-care (01) ==
PROVIDERS: PCP Internal Medicine; Visit Provider Internal Medicine
DX: K57.92 Diverticulitis of intestine, part unspecified, without perforation or abscess without bleeding (principal)
CPT/HCPCS: 99204

== ENCOUNTER → 2023-03-08 13:15 | Outpatient (BNVA) | payer MEDICARE, SELFPAY | PROVIDERS: PCP Internal Medicine; Visit Provider Internal Medicine | DX: K57.92 Diverticulitis of intestine, part unspecified, without perforation or abscess without bleeding (principal) | CPT/HCPCS: 99202 ==

== ENCOUNTER → 2023-07-06 06:54 | Day surgery (SDC) | payer MEDICARE, SELFPAY ==
[2023-07-04 13:07] VITALS: BMI 23.0
--- NOTE | 2023-07-05 08:34 | P.CONAN_ITS ---
Documented by User: Jessica Magaña NP 07/05/23 08:35 HPI - Anesthesia Eval Consult details Narrative: 73yo F for Colonoscopy PMFSH Active Problems Active Problems: All Active Problems (Updated 07/04/23 @ 11:45 by Suzie Deutsch RN) Diverticulitis (Acute) Past Medical History Medical History (Updated 07/04/23 @ 11:45 by Suzie Deutsch RN) Diverticulitis IBS (irritable bowel syndrome) Hyperlipemia Surgical History Surgical History (Updated 07/06/23 @ 07:21 by Melany Guadalupe RN) History of shoulder surgery History of hand surgery Hx of colonoscopy Social History Social History Household Members: Spouse Housing: House Do you presently have visiting nurse or other home services: No Patient Tobacco Use Status: Former Tobacco user Use of substances other than those prescribed or required for medical reasons: No Are you DNR?: No Advance Directives: No Advance Directives Information Provided: Yes service: No Meds Allergies Allergy/AdvReac Type Severity Reaction Status Date / Time latex Allergy Intermediate hives Unverified 07/04/23 11:43 narcotics Allergy Intermediate Unknown Uncoded 07/06/23 07:14 Home Medications Medication Instructions Recorded Confirmed Last Taken Type atorvastatin 10 mg tablet 10 mg PO DAILY 02/18/23 07/04/23 Unknown History Exam Height,Weight and Vital Signs: Height 5 ft 2 in Weight 57.153 kg Pertinent Lab Results Pertinent Lab Results: Laboratory Tests 02/18/23 02/18/23 02/19/23 09:50 09:50 06:13 WBC 8.4 Hgb 12.5 Hct 37.6 Plt Count 252 Sodium 143 Potassium 3.5 Chloride 111 H Carbon Dioxide BUN 8 L Creatinine 02/19/23 06:13 WBC Hgb Hct Plt Count Sodium Potassium Chloride Carbon Dioxide 22 BUN Creatinine 0.62 Assessment and Plan Assessment Anesthesia Assessment: Chart Reviewed Documented by User: Nakia Balderrama MD 07/06/23 08:23 [facility] Past Medical History Medical History (Updated 07/04/23 @ 11:45 by Suzie Deutsch, RN) Diverticulitis IBS (irritable bowel syndrome) Hyperlipemia Surgical History Surgical History (Updated 07/06/23 @ 07:21 by Melany Guadalupe, YEHUDA) History of shoulder surgery History of hand surgery Hx of colonoscopy Social History Social History Household Members: Spouse Housing: House Do you presently have visiting nurse or other home services: No Patient Tobacco Use Status: Former Tobacco user Use of substances other than those prescribed or required for medical reasons: No Are you DNR?: No Advance Directives: No Advance Directives Information Provided: Yes service: No Meds Allergies Allergy/AdvReac Type Severity Reaction Status Date / Time latex Allergy Intermediate hives Unverified 07/04/23 11:43 narcotics Allergy Intermediate Unknown Uncoded 07/06/23 07:14 Home Medications Medication Instructions Recorded Confirmed Last Taken Type atorvastatin 10 mg tablet 10 mg PO DAILY 02/18/23 07/04/23 Unknown History Exam Narrative Narrative: Pre-op EKG obtained after rhythm strip showed marked ST depression. EKG confirmed ST depression and machine packer was consulted.Advised by machine packer to hold on this elective procedure until further work up can be done.
[2023-07-06 07:14] VITALS: BMI 22.3
[2023-07-06 07:36] VITALS: BP 166/59; PULSE 54; RESP 16; TEMP 36.7; O2SAT 99
--- NOTE | 2023-07-06 07:41 | ECG_ITS ---
Test Reason : preop Blood Pressure : / mmHG Vent. Rate : 054 BPM Atrial Rate : 054 BPM P-R Int : 144 ms QRS Dur : 102 ms QT Int : 478 ms P-R-T Axes : 061 021 178 degrees QTc Int : 453 ms Sinus bradycardia Voltage criteria for left ventricular hypertrophy ( R in aVL , Sokolow-Rodriguez , [place] product ) ST & Marked T wave abnormality, consider anterolateral ischemia Abnormal ECG No previous ECGs available Referred By: Nakia Balderrama Electronically Signed By:FLORES MARRERO
--- NOTE | 2023-07-06 07:43 | PC.NURSE ---
PATIENT DOESN'T HAVE A BASELINE EKG. ANTI BY BY THE BEDSIDE. ASYMPTOMATIC. ? T WAVE DEPRESSIONS. DENIES CARDIAC HISTORY.
[2023-07-06] MEDS: Lactated Ringers 1,000 ML 100 ML IVCONT (07:51)
[2023-07-06 08:07] VITALS: BP 179/71; PULSE 55
--- NOTE | 2023-07-06 08:20 | MHC.SHP ---
Pre-Procedural Eval Section A - 24 Hr Update-Section A only Date of Service: 07/06/23 Section B - Complete if H&P > 30 days Chief Complaint: Diverticulitis of intestine, part unspecified, wit Details of Present Illness: Medical History Diverticulosis IBS (irritable bowel syndrome) Hyperlipemia Surgical History Hx of colonoscopy Relevant Family History (Specify if Yes): No Relevant Social History: None Present Medications: see Short Stay Collaborative assessment Allergies: Allergies Allergy/AdvReac Type Severity Reaction Status Date / Time latex Allergy Intermediate hives Unverified 07/04/23 11:43 narcotics Allergy Intermediate Unknown Uncoded 07/06/23 07:14 Review of Systems Review of Systems Comment: 10 point ROS negative Exam Exam Comment: Gen appear: No acute distress HEENT: no icterus Chest: No overt resp distress Abd: soft, nontender, nondistended Psych: Stable affect, answering questions appropriately Neuro: A/Ox3 noted to move all extremities spontaneously Ext: no peripheral edema Plan Diagnosis/Plan: Change I have reviewed the history and physical and performed a pertinent physical examination on my patient. No changes have occurred unless specified. Pt noted to have ST depressions on tele which was then confirmed on 12-lead EKG. Anesthesia team reviewed the case with Cardiology who advised to NOT proceed with this elective case for now until she has had complete cardiac evaluation. Pt remains asymptomatic and without any chest pain or shortness of breath. Her PCP Dr Martinez was also updated over the phone by Dr Eli Balderrama. Time Spent With Patient Time: Total time managing care of this patient today ____ minutes.
--- NOTE | 2023-07-06 08:25 | PC.NURSE ---
PATIENT CANCELLED. AWARE OF PLAN OF CARE. EKG COPIED AND GIVEN TO PATIENT. ASYMPTOMATIC. ECHO WAS MENTIONED IN HER PRIMARY CARE APPT. PATIENT TO FOLLOW UP WITH HER PCP PHYSICIAN. MD MOYER SPOKE TO HER PRIMARY CARE.
--- NOTE | 2023-07-06 08:27 | PC.NURSE ---
CALLED AND AWARE OF HER PLAN OF CARE. ASSISTED TO FRONT OF THE HOSPITAL AMBULATORY STEADY GAIT.
--- NOTE | 2023-07-06 08:34 | HO.ANESEVENT ---
Anesthesia Event Note Date of Service: 07/06/23 Event Note: Spoke with pt.s primary care doctor about events of the morning and need for further cardiac testing. (Dr Stanley Martinez.) Time Spent With Patient Time: Total time managing care of this patient today ___30 _ minutes.
== END ==
PROVIDERS: PCP Internal Medicine; Visit Provider Internal Medicine
DX: K57.92 Diverticulitis of intestine, part unspecified, without perforation or abscess without bleeding (principal); Z53.8 Procedure and treatment not carried out for other reasons; R94.31 Abnormal electrocardiogram [ECG] [EKG]
CPT/HCPCS: 92950; 93005; J2704

== ENCOUNTER → 2023-07-06 07:41 | Outpatient (BNV) | payer MEDICARE, SELFPAY | PROVIDERS: PCP Internal Medicine; Visit Provider Internal Medicine | DX: R00.1 Bradycardia, unspecified (principal) | CPT/HCPCS: 93010 ==

== ENCOUNTER 2023-07-10 13:01 | Outpatient (AMB) | payer MEDICARE, SELFPAY ==
--- NOTE | 2023-07-10 13:08 | MHC.OFFVIS ---
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 She recently came for colonoscopy but that was canceled due to the EKG findings. Patient herself does not have any known cardiac history. No history of any coronary disease, myocardial infarction or cardiomyopathy. It seems she possibly has uncontrolled hypertension but again not very clear as she states some of readings are in the 130s only. Otherwise, within limits of her activity she does not have any clear-cut anginal-type complaints. [facility] Medical History (Updated 07/10/23 @ 13:59 by Justus Lilly MD) Diverticulitis IBS (irritable bowel syndrome) Hyperlipemia Surgical History History of shoulder surgery History of hand surgery Hx of colonoscopy Family History (Updated 07/10/23 @ 13:17 by Justus Lilly MD) Mother Atrial fibrillation Social History Household Members: Spouse Housing: House Do you presently have visiting nurse or other home services: No Patient Tobacco Use Status: Former Tobacco user service: No Review of Systems Const Denies chills, Denies daytime sleepiness, Denies fatigue, Denies fever(s), Denies frequent falls, Denies night sweats, Denies snoring, Denies weakness, Denies weight gain and Denies weight loss Eyes Denies loss of vision ENT Denies dizziness and Denies hearing loss Card Denies chest pain, Denies chest pain with activity, Denies syncope, Denies rapid heart rate, Denies edema, Denies claudication, Denies leg edema, Denies lightheadedness, Denies palpitations, Denies dyspnea, Denies dyspnea on exertion and Denies orthopnea Resp Denies cough, Denies excessive phlegm production, Denies dyspnea, Denies dyspnea on exertion, Denies snoring and Denies wheezing GI Denies abdominal pain, Denies hematochezia, Denies change in bowel habits, Denies change in stool character, Denies heartburn, Denies nausea and Denies vomiting Denies hematuria, Denies urinary frequency and Denies dysuria Musc Denies arthralgias, Denies muscle weakness, Denies numbness and Denies tingling Skin/Breast Denies nail changes and Denies rash Neuro Denies Abnormal speech present, Denies dizziness, Denies syncope, Denies frequent falls, Denies loss of vision, Denies memory loss, Denies numbness, Denies tingling and Denies weakness Psych Denies depression and Denies memory loss Endo Denies fatigue and Denies palpitations Aller/Immun Denies wheezing Physical Exam Vital Signs: Last Vital Signs Pulse 70 07/10/23 13:09 BP 158/60 H 07/10/23 13:09 BMI result Body Mass Index 22.4 Const General: comfortable and no acute distress Orientation/consciousness: patient oriented x3 HEENT Other: Unremarkable Head: Yes normal to inspection Neck Neck: Yes normal visual inspection Chest Chest palpation & inspection: normal inspection of the chest Resp Auscultation: clear to auscultation bilaterally Cardio Palpation: normal PMI Heart sounds: S1 normal heart sound present, S2 normal heart sound present, no gallops, no murmurs and no rubs GI Palpation (GI): Soft to palpation Back/Spine/Pelvis Other: unremarkable Skin General skin exam: no rashes or lesions noted Neuro General: patient oriented x3 Speech: No Abnormal speech present Extrem General: Yes normal to inspection Psych Mental Status: mental status grossly normal Assessment & Plan Assessment & Plan (1) Abnormal EKG: Code(s): R94.31 - Abnormal electrocardiogram [ECG] [EKG] (2) Preoperative cardiovascular examination: Code(s): Z01.810 - Encounter for preprocedural cardiovascular examination Plan Recent EKG shows sinus bradycardia 54/Min; anterolateral ST depression with T inversions. Not clear if her EKG findings are related to uncontrolled chronic hypertension. Ischemia also possible but she does not have any overt symptoms. We can start with an echocardiogram and if this is grossly unremarkable, then stress myocardial perfusion imaging study. For high blood pressure, start amlodipine 5 mg daily. We can plan invasive procedures after the above are completed and reviewed. Plan discussed with patient and she agrees. Orders: Orders NM cardiolite stress test Today R07.2 - Precordial pain, R94.31 - Abnormal electrocardiogram [ECG] [EKG] CA echo transthoracic complete Today I25.10 - Atherosclerotic heart disease of [place] coronary artery without angina pectoris, R94.31 - Abnormal electrocardiogram [ECG] [EKG] CA stress test Today R07.2 - Precordial pain, R94.31 - Abnormal electrocardiogram [ECG] [EKG] Medications: New amlodipine 5 mg PO DAILY 90 tabs 3RF R94.31 - Abnormal electrocardiogram [ECG] [EKG] Coding Level of Care Code New Pt Level 4 (32371) Diagnoses Abnormal EKG R94.31 Preoperative cardiovascular examination Z01.810
[2023-07-10 13:09] VITALS: BP 158/60; PULSE 70; BMI 22.4
== END 2023-07-10 13:34 | disposition home or self-care (01) ==
PROVIDERS: PCP Internal Medicine; Visit Provider Internal Medicine
DX: R00.1 Bradycardia, unspecified (principal); R94.31 Abnormal electrocardiogram [ECG] [EKG]; Z01.810 Encounter for preprocedural cardiovascular examination
CPT/HCPCS: 99214

== ENCOUNTER → 2023-07-10 13:01 | Outpatient (BNVA) | payer MEDICARE, SELFPAY | PROVIDERS: PCP Internal Medicine; Visit Provider Internal Medicine | DX: Z01.810 Encounter for preprocedural cardiovascular examination (principal); R94.31 Abnormal electrocardiogram [ECG] [EKG] | CPT/HCPCS: 99212 ==

== ENCOUNTER → 2023-08-10 07:46 | Outpatient (REF) | payer MEDICARE, SELFPAY ==
--- NOTE | ~2023-08-10 | NM_ITS ---
Exercise Myocardial perfusion study Indication: Precordial chest pain to evaluate for myocardial ischemia Technique: The patient was brought in for an exercise perfusion study on 08/10/2023. Patient performed exercise as per [facility] protocol and was injected 25 mCi of sestamibi was given intravenously one target HR was achieved. Images were obtained using the SPECT gamma camera interlaced with the gating device. Images were obtained in supine position. Resting perfusion study was performed on 08/11/2023. Patient was administered 25 mCi of sestamibi intravenously at rest. Images were then obtained in supine position. Images obtained with and without CT attenuation. Total DLP 84 mGy-cm Images were processed with the software and compared side to side in short axis, horizontal long axis and vertical long axis views. Findings: The stress perfusion study showed non attenuated show mildly reduced uptake in the basal lateral wall of the LV myocardium. Remainder of the LV myocardium is normally perfused. Attenuated corrected images show normal uptake of radiotracer in all segments of LV myocardium. There is suggestion of apical hypertrophy.. The gated study shows normal LV systolic function with calculated LVEF of 75%. LV cavity is normal in size. The gated study shows normal systolic wall thickening and contraction of all segments. There is no transient ischemic dilation. Resting study shows perfusion pattern compared to stress perfusion study. Gating at rest reveals normal systolic wall motion with ejection fraction at greater than 60%. The findings are consistent with normal myocardial perfusion. NM/NM cardiolite stress test Impression: 1. Normal myocardial perfusion 2. Gated LVEF is 75% 3. Transient ischemic dilatation not present Stress EKG is positive for ischemia
--- NOTE | 2023-08-10 07:49 | CA_ITS ---
Acquisition Time: 2023-08-10 09:36:27 Total Exercise Time: 00:05:01 Test Indications: ABN EKG Medications: SEE H Protocol: AMIRAH Max HR: 130 BPM 88% of Pred: 147 BPM Max BP: 208/038 mmHG Max Work Load: 7.0 METS Exericse stress test exercise 5 min 1 sec of Amirah protocol achieving 87% MPHR, with mild SOB, no chest discomfort, without arrhythmais, with hypertensive response to exercise, with ST depression greater then 2mm leads 2, 3, V3-V6, ST elevated lead 3. Baseline of 1mm depression Referred By: Justus Lilly Overread By: Eli Sy
--- NOTE | 2023-08-10 07:49 | CA_ITS ---
Transthoracic Echocardiogram Patient (Last, First, Middle): Sheyla Baugh, Gender: Female Date of : 1950 Age: 73 Procedure Date: 08/10/2023 Procedure Type: Transthoracic Echocardiogram Location: OP Height: 160.02 cm Weight: 57.15 kg BSA: 1.59 m2 Heart Rate: 53 bpm BP: 158 / 70 mmHg Process Cheese Cooker: SB Referring MD: Justus Lilly MD Commercial Airline Pilot: Mariusz Doherty MD Symptoms: I25.10 - Atherosclerotic heart disease of [place] coronary artery without... Study Quality: Adequate ECG Rhythm: Bradycardia Conclusions: - 1. Hyperdynamic LV ejection fraction greater than 70% with pseudonormal filling pattern with evidence of apical hypertrophic cardiomyopathy 2. Moderately dilated left atrium 3. Mild aortic and mitral regurgitation 4. Normal RV systolic pressure 5. No gross pericardial effusion Findings Left Ventricle Normal left ventricular cavity size. There is normal left ventricular wall thickness. The left ventricular systolic function is hyperdynamic. The visually estimated ejection fraction is >70%. There is evidence of hypertrophic cardiomyopathy. Spectral Doppler is indicative of a pseudonormal filling pattern. E/E prime ratio is between 8 and 15 consistent with indeterminate filling pressures. There is moderate apical asymmetric hypertrophy. Peak GLS is -12.6%, which is moderately to severely reduced. Right Ventricle Normal right ventricular cavity size and systolic function. Atria The left atrium is moderately dilated. There is no evidence of interatrial shunt. The right atrium is normal in size. Aortic Valve Normal aortic valve structure and function. There is no aortic valve stenosis. There is mild aortic valve regurgitation. Mitral Valve There is mild anterior and posterior mitral leaflet thickening. There is mild mitral annular calcification. There is mild mitral valve regurgitation. There is no mitral valve stenosis. Pulmonic Valve The pulmonic valve is likely normal. There is trace pulmonic valve regurgitation. Tricuspid Valve Normal tricuspid valve structure. There is mild tricuspid valve regurgitation. The right ventricular systolic pressure is 28 mmHg. Normal right atrial pressure. There is no evidence of pulmonary hypertension. Great Vessels All visible segments of the aorta are normal in size. The pulmonary artery was not well visualized. There is no dilatation of the ascending aorta measuring 3.40 cm. Venous The inferior vena cava is normal in size and collapses greater than 50% with inspiration. Pericardium/Pleural There is no evidence of pericardial effusion. Prior Study Comparison No prior study available for comparison. Measurements 2D Linear Measurements IVSd: 0.73 0.6-0.9/0.6-1.0 cm LVIDd: 5.04 3.9-5.3/4.2-5.9 cm LVIDd Index: 3.17 2.4-3.2/2.2-3.1 cm/m2 LVIDs: 3.22 2.0-3.6 cm LVPWd: 0.94 0.7-1.1 cm LA Diam: 4.00 2.7-3.8/3.0-4.0 cm LAIDs Index: 2.52 1.5-2.3 cm/m2 LV Mass: 180.21 67-162/88-224 g LV Mass Index: 113.34 43-95/49-115 g/m2 LVOT Diam: 1.90 3.0+(-)1.3 cm 2D Systolic Function EF 4C: 80.50 >55% EF 2C: 80.70 >55% EF BiP: 79.40 >55% Mitral Valve MV Pk E: 0.78 MV PK A: 0.38 MV Decel Time: 148.00 E/A: 2.10 E'Lateral: 5.44 E'Medial: 5.55 E/E' Med: 14.10 E/E' Lat: 14.40 PHT: 43.00 MVA PHT: 5.12 Decel [place]: 5.30 Aortic Valve AoV Pk Tera: 1.28 AoV Pk Grad: 7.00 GORDY: 2.31 AI Pk Tera: 3.87 AI [place]: 2.03 LVOT LVOT Pk Tera: 1.02 LVOT Mn Tera: 0.66 LVOT VTI: 0.23 LVOT Pk Grad: 4.00 LVOT Mn Grad: 2.00 LVOT Diam: 1.90 LVOT Area: 2.84 Diastolic Function MV Pk E: 0.78 MV Pk A: 0.38 E/A: 2.10 E'Medial: 5.55 E/E' Med: 14.10 E' Laterial: 5.44 E/E' Lat: 14.40 Right Ventricle TAPSE (mm): 20.40 TVS' Tera: 12.10 Tricuspid Valve TR Pk Tera: 2.49 TR Pk Grad: 25.00 RA Press: 3.00 RVSP: 28.00 Great Vessels Aorta Sinus of Valsalva: 2.90 2.0-3.5 cm Ao Asc: 3.40 2.1-3.4 cm Pulmonary Veins Pulm Vein S/D 0.90 Pulmonary Valve PV Pk Tera: 0.81 Peak PV Grad: 3.00 CO Pk Tera: 2.06 Updated in Other Vendor System with Status of Final Mariusz Doherty MD electronically signed on 08/11/2023 2:04:15 PM with status of Final
== END ==
LOC: HO.CARD 07:46
PROVIDERS: PCP Internal Medicine; Visit Provider Internal Medicine
DX: R07.2 Precordial pain (principal); I25.10 Atherosclerotic heart disease of native coronary artery without angina pectoris; R94.31 Abnormal electrocardiogram [ECG] [EKG]
CPT/HCPCS: 78452; 93017; 93306; 93356; A9500

== ENCOUNTER → 2023-08-10 07:49 | Outpatient (BNV) | payer MEDICARE, SELFPAY | PROVIDERS: PCP Internal Medicine; Visit Provider Nurse Practitioner | DX: R94.31 Abnormal electrocardiogram [ECG] [EKG] (principal); R06.02 Shortness of breath; R07.2 Precordial pain; I35.1 Nonrheumatic aortic (valve) insufficiency; I34.0 Nonrheumatic mitral (valve) insufficiency; R93.1 Abnormal findings on diagnostic imaging of heart and coronary circulation | CPT/HCPCS: 78452; 93016; 93018; 93320; 93350; 93356 ==

== ENCOUNTER 2023-09-19 11:30 | Day surgery (SDC) | payer MEDICARE, SELFPAY ==
--- NOTE | 2023-09-01 09:57 | HO.ANESPROP2 ---
Documented by User: Jessica Magaña NP 09/11/23 15:23 HPI - Anesthesia Eval Consult details Narrative: 73yo F for Colonoscopy, 09/19/23 Pt cx'd DOS 06/2023 d/t increased BP and abnormal EKG. Cardiac w/u with Echo and Stress OK. No further cardiac test/tx at this time. Will f/u with cardiology in a few months. [facility] Active Problems Active Problems: All Active Problems Preoperative cardiovascular examination (Acute) Abnormal EKG (Acute) Diverticulitis (Acute) Past Medical History Medical History Diverticulitis IBS (irritable bowel syndrome) Hyperlipemia Family History Family History Mother Atrial fibrillation Surgical History Surgical History History of shoulder surgery History of hand surgery Hx of colonoscopy Social History Social History Household Members: Spouse Housing: House Do you presently have visiting nurse or other home services: No Patient Tobacco Use Status: Former Tobacco user Are you DNR?: No Advance Directives: No Advance Directives Information Provided: Yes Nutrition Risks: No Nutritional Risk service: No Meds Allergies Allergy/AdvReac Type Severity Reaction Status Date / Time latex Allergy Intermediate hives Verified 09/19/23 11:52 narcotics Allergy Intermediate Unknown Uncoded 09/19/23 11:52 Home Medications ?Medication ?Instructions ?Recorded ?Confirmed ?Last Taken ?Type atorvastatin 10 mg tablet 10 mg PO DAILY 02/18/23 09/19/23 Unknown History Exam Narrative Narrative: EKG 06/2023 Vent. Rate : 054 BPM Atrial Rate : 054 BPM P-R Int : 144 ms QRS Dur : 102 ms QT Int : 478 ms P-R-T Axes : 061 021 178 degrees QTc Int : 453 ms Sinus bradycardia Voltage criteria for left ventricular hypertrophy ( R in aVL , Sokolow-Rodriguez , [place] product ) ST & Marked T wave abnormality, consider anterolateral ischemia Abnormal ECG No previous ECGs available Exercise Stress 06/2023 Protocol: AMIRAH Max HR: 130 BPM 88% of Pred: 147 BPM Max BP: 208/038 mmHG Max Work Load: 7.0 METS Exericse stress test exercise 5 min 1 sec of Amirah protocol achieving 87% MPHR, with mild SOB, no chest discomfort, without arrhythmais, with hypertensive response to exercise, with ST depression greater then 2mm leads 2, 3, V3-V6, ST elevated lead 3. Baseline of 1mm depression ECHO 2023 Conclusions: - 1. Hyperdynamic LV ejection fraction greater than 70% with pseudonormal filling pattern with evidence of apical hypertrophic cardiomyopathy 2. Moderately dilated left atrium 3. Mild aortic and mitral regurgitation 4. Normal RV systolic pressure 5. No gross pericardial effusion Assessment and Plan Assessment Anesthesia Assessment: Chart Reviewed Documented by User: Nakia Balderrama MD 09/19/23 13:28 [facility] Past Medical History Medical History Diverticulitis IBS (irritable bowel syndrome) Hyperlipemia Family History Family History Mother Atrial fibrillation Surgical History Surgical History History of shoulder surgery History of hand surgery Hx of colonoscopy History of Problems with Anesthesia: No Social History Social History Household Members: Spouse Housing: House Do you presently have visiting nurse or other home services: No Patient Tobacco Use Status: Former Tobacco user Are you DNR?: No Advance Directives: No Advance Directives Information Provided: Yes Nutrition Risks: No Nutritional Risk service: No Meds Allergies Allergy/AdvReac Type Severity Reaction Status Date / Time latex Allergy Intermediate hives Verified 09/19/23 11:52 narcotics Allergy Intermediate Unknown Uncoded 09/19/23 11:52 Home Medications ?Medication ?Instructions ?Recorded ?Confirmed ?Last Taken ?Type atorvastatin 10 mg tablet 10 mg PO DAILY 02/18/23 09/19/23 Unknown History Exam Airway Mallampati Class: II TM Dist: >3cm Neck ROM: Full Loose/Missing/Broken Teeth: No Heart: RRR Lungs: CTA Assessment and Plan Assessment Anesthesia Assessment: Anesthesia Plan Discussed Final Anesthetic Review History of Problems with Anesthesia: No NPO: Yes ASA Class: III Final Preanesthetic Review: Meds/Allgs Chart Reviewed, Consent Obtained/Reviewed and Anes Risks/Benef Reviewed Patient Risk: Intermediate Procedure Risk: Low Anesthetic Plan Anesthetic Plan: MAC: Disposition: Standard PACU
[2023-09-19 11:51] VITALS: BMI 22.3
[2023-09-19] MEDS: Lactated Ringers 1,000 ML 100 ML IVCONT (11:59)
--- NOTE | 2023-09-19 12:06 | MHC.SHP ---
Pre-Procedural Eval Section A - 24 Hr Update-Section A only Date of Service: 09/19/23 Section B - Complete if H&P > 30 days Chief Complaint: Diverticulitis of intestine, part unspecified, wit Details of Present Illness: Medical History Diverticulosis IBS (irritable bowel syndrome) Hyperlipemia Surgical History Hx of colonoscopy Relevant Family History (Specify if Yes): No Relevant Social History: None Present Medications: see Short Stay Collaborative assessment Allergies: Allergies Allergy/AdvReac Type Severity Reaction Status Date / Time latex Allergy Intermediate hives Verified 09/19/23 11:52 narcotics Allergy Intermediate Unknown Uncoded 09/19/23 11:52 Review of Systems Review of Systems Comment: 10 point ROS negative Exam Exam Comment: Gen appear: No acute distress HEENT: no icterus Chest: No overt resp distress Abd: soft, nontender, nondistended Psych: Stable affect, answering questions appropriately Neuro: A/Ox3 noted to move all extremities spontaneously Ext: no peripheral edema Plan Diagnosis/Plan: Unchanged I have reviewed the history and physical and performed a pertinent physical examination on my patient. No changes have occurred unless specified. Time Spent With Patient Time: Total time managing care of this patient today ____ minutes.
[2023-09-19 12:11] VITALS: BP 146/55; PULSE 56; RESP 18; TEMP 36.9; O2SAT 98
[2023-09-19 14:16] VITALS: BP 144/51; PULSE 64; RESP 18; TEMP 36.4; O2SAT 100
--- NOTE | 2023-09-19 14:19 | P.OPN-COLO_ITS ---
Colonoscopy Operative Note Operative Note Date of Service: 09/19/23 Narrative: Procedure: Colonoscopy Indication: Hx of diverticulitis Endoscopist: Brooke Feldman MD Anesthesia Provider: Dr Eli Balderrama Anesthesia type: MAC Instrument: Olympus [id number]-[id number] Consent: Indication, risks vs benefits, and alternatives were discussed with the patient who gave written informed consent to proceed. EKG, pulse, pulse oximetry and blood pressure were monitored throughout the procedure. Please see anesthesia flowsheet. Procedure: The patient was brought to the procedure room and placed in the left lateral decubitus position. IV medications were administered by the anesthesia provider in attendance. A digital rectal exam was performed which was normal. A distal attachment cap was affixed to the tip of the colonoscope which was then inserted through the anus and advanced through the colon to the cecum at 75 cm,and terminal ileum. Appendiceal orifice and ileocecal valve were identified. Mucosa was carefully examined under high definition white light as the instrument was slowly withdrawn in a retrograde panoramic fashion. Retroflexion was performed in rectum. The procedure was somewhat difficult and required pressure to intubate the cecum. There were no immediate obvious complications. The quality of the prep was BBPS: 3+2+3 = adequate Withdrawal time 12 minutes. Limitations: No limitations. Findings: Mucosa: Normal to cecum and terminal ileum. Protruding lesions: * 2 sessile polyp of size 2 mm in ascending colon. Cold forceps polypectomy was performed. The polyps were completely removed and retrieved. * 1 semi-pedunculated polyp of size 8 mm in sigmoid colon. Cold snare polyp ectomy was performed. The polyp was completely removed and retrieved. * Medium internal hemorrhoids without stigmata of recent bleeding. Excavated lesions: * Severe diverticulosis of left sided colon. Impression: 1. Normal colon and terminal ileum mucosa 2. Total of 3 polyps removed 3. Diverticulosis 4. Internal hemorrhoids Recommendations: - Increase fiber intake - Follow path results. - Repeat colonoscopy in 5-7 years if in good health
[2023-09-19 14:30] VITALS: BP 142/52; PULSE 60; RESP 16; O2SAT 98
[2023-09-19 14:45] VITALS: BP 152/48; PULSE 52; RESP 16; TEMP 36.6; O2SAT 99
== END 2023-09-19 15:22 | disposition home or self-care (01) ==
PROVIDERS: PCP Internal Medicine; Visit Provider Internal Medicine
PROC: 0DJD8ZZ Inspection of Lower Intestinal Tract, Via Natural or Artificial Opening Endoscopic (ICD-10-PCS; CPT 45378; principal; 2023-09-19 14:00)
DX: D12.2 Benign neoplasm of ascending colon (principal); D12.5 Benign neoplasm of sigmoid colon; K57.30 Diverticulosis of large intestine without perforation or abscess without bleeding; K64.8 Other hemorrhoids; Z87.19 Personal history of other diseases of the digestive system; Z91.040 Latex allergy status
CPT/HCPCS: 45380; 88305; J2704

== ENCOUNTER → 2023-09-19 11:30 | Outpatient (BNV) | payer MEDICARE, SELFPAY | PROVIDERS: PCP Internal Medicine; Visit Provider Internal Medicine | DX: K57.30 Diverticulosis of large intestine without perforation or abscess without bleeding (principal); D12.2 Benign neoplasm of ascending colon; D12.5 Benign neoplasm of sigmoid colon; K64.0 First degree hemorrhoids | CPT/HCPCS: 45380; 45385 ==

== ENCOUNTER 2023-10-05 13:19 | Outpatient (AMB) | payer MEDICARE, SELFPAY ==
[2023-10-05 13:40] VITALS: BP 140/62; PULSE 57; O2SAT 99; BMI 22.7
--- NOTE | 2023-10-05 13:40 | A.OFFVIS_ITS ---
Vital Signs 10/05/23 13:40 Height 5 ft 2 in Weight 124 lb 5.451 oz BMI 22.7 BP 140/62 H Blood Pressure Location Lt brachial Position Sitting Pulse 57 Pulse Source Pulse Oximeter Pulse Oximetry (%) 99 Intake Visit Reasons: f/up mibi/ echo [employer] Required: No Accompanied by: Self / Same As Patient Allergies latex Allergy (Intermediate, Verified 09/19/23 11:52) hives narcotics Allergy (Intermediate, Uncoded 09/19/23 11:52) Unknown Medication List - Last Reconciled 10/05/23 by Justus Lilly MD amlodipine 5 mg PO DAILY atorvastatin 10 mg PO DAILY dicyclomine 20 mg PO Q6H PRN HPI Comments Details: Sheyla returns for follow-up. Recently seen in consultation regarding an abnormal EKG. Shows only came for colonoscopy when she was noted to have an abnormal EKG. Patient herself without any cardiac history including coronary disease or myocardial infarction or cardiomyopathy. Suspected to have chronic hypertension but not treated. Recently started amlodipine. Otherwise, recently finished an echocardiogram and stress test. From symptoms standpoint, does not have anything obvious like angina. Overall feels good. [facility] Medical History Diverticulitis IBS (irritable bowel syndrome) Hyperlipemia Surgical History History of shoulder surgery History of hand surgery Hx of colonoscopy Family History Mother Atrial fibrillation Social History Household Members: Spouse Housing: House Do you presently have visiting nurse or other home services: No Patient Tobacco Use Status: Former Tobacco user service: No Review of Systems Const Denies chills, Denies fatigue, Denies fever(s), Denies frequent falls, Denies weakness, Denies weight gain and Denies weight loss ENT Denies dizziness Card Denies chest pain, Denies leg edema, Denies lightheadedness, Denies palpitations, Denies dyspnea and Denies dyspnea on exertion Resp Denies cough, Denies dyspnea and Denies dyspnea on exertion GI Denies hematochezia Musc Denies abnormal gait, Denies muscle weakness, Denies numbness, Denies radiating pain into limb and Denies tingling Neuro Denies abnormal gait, Denies dizziness, Denies frequent falls, Denies numbness, Denies tingling and Denies weakness Endo Denies fatigue and Denies palpitations Physical Exam Vital Signs: Last Vital Signs Pulse 57 10/05/23 13:40 BP 140/62 H 10/05/23 13:40 Pulse Ox 99 10/05/23 13:40 BMI result Body Mass Index 22.7 Assessment & Plan Assessment & Plan (1) Apical variant hypertrophic cardiomyopathy: Code(s): I42.2 - Other hypertrophic cardiomyopathy Category: Medical Plan Recent EKG shows sinus bradycardia 54/Min; anterolateral ST depression with T inversions. In the echocardiogram, there is clear evidence of apical hypertrophic card iomyopathy. Myocardial perfusion imaging study was normal. In the ETT component, no chest discomfort; 7 METS exercise capacity; hypertensive blood pressure response. Overall, EKG changes are likely related to the apical hypertrophic cardiomyopathy. She does not have any clear family history in this regard. Advised first-degree relatives to get an echocardiogram for screening. Otherwise, we could get a cardiac MRI in the future for further evaluation including extent of delayed enhancement. Holter to obtain information about any ventricular arrhythmias although there is no history of any syncope. With regard to blood pressure, she can continue the amlodipine 5 mg daily. She states home blood pressures are in the 120s and 130s. We will see how she does and may have to increase the dose in the future. Follow-up in 6 months. Orders: Orders ECG 3 day holter monitor Today I42.1 - Obstructive hypertrophic cardiomyopathy, R94.31 - Abnormal electrocardiogram [ECG] [EKG] Coding Level of Care Code Est Pt Level 4 (47444) Diagnoses Apical variant hypertrophic cardiomyopathy I42.2
== END 2023-10-05 14:05 | disposition home or self-care (01) ==
PROVIDERS: PCP Internal Medicine; Visit Provider Internal Medicine
DX: I42.2 Other hypertrophic cardiomyopathy (principal)
CPT/HCPCS: 99214

== ENCOUNTER → 2023-10-05 13:19 | Outpatient (BNVA) | payer MEDICARE, SELFPAY | PROVIDERS: PCP Internal Medicine; Visit Provider Internal Medicine | DX: I42.2 Other hypertrophic cardiomyopathy (principal) | CPT/HCPCS: 99212 ==

== ENCOUNTER 2023-10-09 10:46 | Outpatient (AMB) | payer MEDICARE, SELFPAY ==
--- NOTE | 2023-10-09 10:58 | MHC.OFFVIS ---
Vital Signs 10/09/23 11:01 10/09/23 11:04 Height 5 ft 2 in Weight 124 lb 12.506 oz BMI 22.8 BP 190/76 H 144/66 H Blood Pressure Location Lt brachial Lt brachial Position Sitting Sitting Pulse 52 52 Comment BP recheck Intake Visit Reasons: s/p colon Intake Note: Sheyla presents in the office as a follow up colonoscopy. CC: She states that she is here for results today. 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 To recap pt was seen in the ER for persistent LLQ with constipation ongoing for almost 8 days and was found to have acute diverticulitis involving the left side of the colon. With this no fevers or chills. Was admitted to the hospital for 2 days and then discharged on PO Augmentin. Reports persistent cramping for many days despite completing Abx but now back to baseline. Worries if she has to restrict her diet and activity due to this. Last colo 2017 (Dr Curtis) - was given a 10y interval per her recall. Does not remember being told about diverticulosis in the past. No fam hx of CRC in FDRs. 09/19/23: 1. Normal colon and terminal ileum mucosa 2. Total of 3 polyps removed 3. Diverticulosis 4. Internal hemorrhoids A. Colon, ascending, polypectomies (2): Tubular adenomata; negative for high-grade dysplasia or carcinoma. B. Colon, sigmoid, polypectomy: Fragments of traditional serrated adenoma; negative for high-grade dysplasia or carcinoma 10/09/23: Here for follow up. [place] findings reviewed. Pt aware to return in 3-5 years due to finding of serrated lesion. Otherwise, no GI related complaints. BP noted to be consistently high. PFSH Medical History Diverticulitis IBS (irritable bowel syndrome) Hyperlipemia Surgical History History of shoulder surgery History of hand surgery Hx of colonoscopy Family History Mother Atrial fibrillation Social History Household Members: Spouse Housing: House Do you presently have visiting nurse or other home services: No Patient Tobacco Use Status: Former Tobacco user service: No Physical Exam Vital Signs: Last Vital Signs Pulse 52 10/09/23 11:04 BP 144/66 H 10/09/23 11:04 BMI result Body Mass Index 22.8 No apparent distress Nonicteric Abdomen soft, nondistended Alert and oriented x3, normal gait Assessment & Plan Assessment & Plan (1) Personal history of colonic polyps: Code(s): Z86.010 - Personal history of colonic polyps Category: Medical (2) Diverticula of colon: Code(s): K57.30 - Diverticulosis of large intestine without perforation or abscess without bleeding Category: Medical (3) Hypertension: Code(s): I10 - Essential (primary) hypertension Category: Medical Plan Reviewed that would recommend repeat colo in 3-5 years due to serrated lesion and total of 3 polyps. Reminder set. Pt cont on bentyl 2-3 times a day for IBS. For high BP, advised that will likely need to increase amlodipine vs add a different med, pt wishes to discuss this with PCP/chief environmental commitment officer. Follow up with GI PRN. Coding Level of Care Code Est Pt Level 4 (06303) Diagnoses Personal history of colonic polyps Z86.010 Diverticula of colon K57.30 Hypertension I10
[2023-10-09 11:01] VITALS: BP 190/76; PULSE 52; BMI 22.8
[2023-10-09 11:04] VITALS: BP 144/66; PULSE 52
== END 2023-10-09 11:47 | disposition home or self-care (01) ==
PROVIDERS: PCP Internal Medicine; Visit Provider Internal Medicine
DX: D12.2 Benign neoplasm of ascending colon (principal); K57.30 Diverticulosis of large intestine without perforation or abscess without bleeding; K64.8 Other hemorrhoids; I10 Essential (primary) hypertension
CPT/HCPCS: 99214

== ENCOUNTER → 2023-10-09 10:46 | Outpatient (BNVA) | payer MEDICARE, SELFPAY | PROVIDERS: PCP Internal Medicine; Visit Provider Internal Medicine | DX: Z71.2 Person consulting for explanation of examination or test findings (principal); K57.30 Diverticulosis of large intestine without perforation or abscess without bleeding; I10 Essential (primary) hypertension; Z86.010 Personal history of colon polyps | CPT/HCPCS: 99212 ==

== ENCOUNTER → 2023-10-31 13:31 | Outpatient (REF) | payer MEDICARE, SELFPAY ==
--- NOTE | 2023-10-31 13:34 | HM_ITS ---
Conclusion: 1. Baseline was normal sinus rhythm with average heart of 55 beats per minute 2. Frequent sinus bradycardia noted with 72.4% of time heart rate below 60 beats per minute with no significant pauses 3. Occasional PACs noted 4. No patient reported events MTDD
== END ==
LOC: HO.CARD 13:31
PROVIDERS: PCP Internal Medicine; Visit Provider Internal Medicine
DX: I42.1 Obstructive hypertrophic cardiomyopathy (principal); R94.31 Abnormal electrocardiogram [ECG] [EKG]; R00.1 Bradycardia, unspecified
CPT/HCPCS: 93242

== ENCOUNTER → 2023-10-31 13:34 | Outpatient (BNV) | payer MEDICARE, SELFPAY | PROVIDERS: PCP Internal Medicine; Visit Provider Internal Medicine Cardiovascular Disease | DX: R00.1 Bradycardia, unspecified (principal) | CPT/HCPCS: 93227 ==

== ENCOUNTER 2024-01-15 04:42 | Emergency (ER) | payer MEDICARE, SELFPAY ==
[2024-01-15] VITALS (11 sets, daily range): BP systolic 127–191; BP diastolic 57–97; PULSE 45–158; RESP 14–18; TEMP 36.3–36.8; O2SAT 96–100; BMI 22.9
--- NOTE | ~2024-01-15 | XR_ITS ---
EXAMINATION: XR CHEST CLINICAL INFORMATION: Dyspnea COMPARISON: None available. TECHNIQUE: Frontal view of the chest was obtained. FINDINGS: The lungs are clear with no focal consolidation. No evidence of pneumothorax, pulmonary edema, or pleural effusions. The cardiomediastinal contour is unremarkable. Mild levoscoliosis of the upper thoracic spine. XR/XR chest 1V IMPRESSION: No acute cardiopulmonary findings. Electronically signed by: Delvin Wright MD 01/15/2024 06:25 AM EDT
--- NOTE | 2024-01-15 04:43 | ECG_ITS ---
Test Reason : palpitions Blood Pressure : / mmHG Vent. Rate : 133 BPM Atrial Rate : 000 BPM P-R Int : 000 ms QRS Dur : 096 ms QT Int : 286 ms P-R-T Axes : 000 028 207 degrees QTc Int : 425 ms Atrial fibrillation with rapid ventricular response Minimal voltage criteria for LVH, may be normal variant ( Sokolow-Rodriguez ) Marked ST abnormality, possible inferolateral subendocardial injury Abnormal ECG When compared with ECG of 06-JUL-2023 07:45, Atrial fibrillation has replaced Sinus rhythm Vent. rate has increased BY [address] now depressed in Inferior leads ST more depressed Lateral leads T wave inversion less evident in Anterior leads Referred By: Generic ED Physician Electronically Signed By:MIRELLA STROUD
[2024-01-15 05:08] LABS: Basophils Absolute Auto 0.1 X10*3/uL (0.0-0.2); Eosinophils Absolute Auto 0.2 X10*3/uL (0.0-0.4); Eosinophils Percent Auto 2.8 % (0-4); Hematocrit 42.6 % (37.0-47.0); Hemoglobin 14.2 g/dl (12.0-16.0); Imm Gran Abs Auto 0.02 X10*3/uL (0.00-0.03); Imm Gran Pct Auto 0.2 % (0.0-0.4); Lymphocytes Absolute Auto 3.4 X10*3/uL (1.2-4.9); Lymphocytes Percent Auto 40.8 % (20-40); MANUAL DIFF FLAG NO; Mean Corpuscular HGB Conc 33.3 g/dl (31.0-35.0); Mean Corpuscular Hemoglobin 30.9 pg (27.0-33.0); Mean Corpuscular Volume 92.8 fL (80.0-98.0); Mean Platelet Volume 11.6 fL (9.4-12.3); Monocytes Absolute Auto 0.7 X10*3/uL (0.1-1.2); Monocytes Percent Auto 8.1 % (2-11); Neutrophils Absolute Auto 3.9 x10*3/uL (2.0-8.3); Neutrophils Percent Auto 47.1 % (45-73); Platelet Count 205 X10*3/uL (160-400); Red Blood Count 4.59 X10*6/uL (4.20-5.50); Red Cell Distribution Width 13.2 % (11.0-16.0); White Blood Count 8.3 X10*3/uL (4.8-10.8)
[2024-01-15 05:14] LABS: INTERNATIONAL NORM RATIO 0.9 (0.9-1.1); Prothrombin Time 10.7 SEC (11.1-13.3)
[2024-01-15] MEDS: dilTIAZem HCL 50 MG/10 ML VIAL 10 MG IVPUSH (05:15)
[2024-01-15 05:16] LABS: Partial Thromboplastin Time 28.8 SEC (26.0-36.8)
--- NOTE | 2024-01-15 05:17 | PC.NURSE ---
pt remains afib RVR - HR between 145-155 bpm. medication administered per provider order. effectiveness pending.
[2024-01-15 05:27] LABS: B Type Natriuretic Peptide 465 pg/mL (<100)
[2024-01-15 05:28] LABS: Troponin-I High Sensitivity 20.9 ng/L (<3.5-17.0)
[2024-01-15 05:32] LABS: Alanine Aminotransferase 16 U/L (0-31); Albumin Level 4.3 g/dL (3.5-5.0); Alkaline Phosphatase 78 U/L (39-117); Anion Gap 13 (12-20); Aspartate Amino Transferase 21 U/L (5-31); Bilirubin Total 0.3 mg/dL (0.0-1.0); Blood Urea Nitrogen 16 mg/dL (9-16); Carbon Dioxide 25 mmol/L (22-29); Chloride 109 mmol/L (96-108); Creatinine Clr Calc Pharmacy 55.8; Estimated Glomerular Filt Rate > 60; Glucose Random 130 mg/dL (60-115); Potassium 3.3 mmol/L (3.3-5.1); Sodium 144 mmol/L (135-145); Total Protein 7.8 g/dL (6.5-8.0)
[2024-01-15] MEDS: dilTIAZem HCL 125 MG in 0.9 % Sodium Chloride 100 ML 10 MG IVCONT (05:38)
--- NOTE | 2024-01-15 05:40 | PC.NURSE ---
pt remains in afib despite previous dose of diltiazem IVP. HR between 100-110bpm. pt verbalizes sensation in left side of chest has subsided at this time. diltiazem drip started @ 10mg/hr. effectiveness pending. pt seems to be resting comfortably in no apparent distress. no sob/wob noted. respirations even/unlabored. bedside for support. plan of care ongoing. call martinez placed within reach.
--- NOTE | 2024-01-15 05:43 | ED_ITS ---
HPI - Arrhythmia/Palpitations General Chief Complaint: Arrhythmia/Palpitations Stated Complaint: arrhythmia Time Seen by Provider: 01/15/24 05:09 Source: patient, family and old records reviewed Mode of arrival: ambulatory Limitations: no limitations History of Present Illness ED Provider: DEBORAH HPI narrative: 73 yo female with PMH of HTN on amlodipine, hypertrophic cardiomyopathy, IBS here with c/o waking up at 330am feeling short of breath with her heart pounding of out her chest. She has never had afib before. She denies chest pain. No recent travel or procedures. Had a small alcoholic cider drink before bed but that is not unusual for patient. No recent illness, OTC medications. The patient states this has never happened to her before. MD complaint: rapid heart beat, heart racing and palpitations Onset (ago): hour(s) (330am today) Duration: constant Severity: moderate Context: occurred during rest Associated symptoms: shortness of breath Related Data Home Medications ?Medication ?Instructions ?Recorded ?Confirmed atorvastatin 10 mg tablet 10 mg PO DAILY 02/18/23 10/05/23 Previous Rx's ?Medication ?Instructions ?Recorded amlodipine 5 mg tablet 5 mg PO DAILY #90 tabs 07/10/23 amoxicillin-potassium clavulanate 1 tab PO BID 10 days #20 tabs 10/16/23 1,000 mg-62.5 mg tablet,ext.rel 12hr (Augmentin XR) dicyclomine 20 mg tablet 20 mg PO Q6H PRN for abdominal 01/01/24 pain #90 tabs Allergies Allergy/AdvReac Type Severity Reaction Status Date / Time latex Allergy Intermediate hives Verified 01/15/24 04:53 narcotics Allergy Intermediate Unknown Uncoded 01/15/24 04:53 Review of Systems 2 Review of Systems: Constitutional : No Fever, No Chills, No Fatigue ENT/Mouth : No sore throat, No Rhinorrhea Eyes: No Eye Pain, No Swelling, No Redness Cardiovascular : No Chest Pain, pos SOB, No Dyspnea on Exertion, pos palpitations Respiratory : No Cough, No Sputum Gastrointestinal : No Nausea, No Vomiting, No Diarrhea, No abdominal Pain Genitourinary : No Dysuria, No Urinary Frequency, No Hematuria, Musculoskeletal : No joint pain, No Myalgias, No Joint Swelling Skin : No Skin Lesions, No rash Neuro : No Weakness, No Numbness, No Dizziness, no Headache Psych : No Anxiety/Panic, No Depression All other systems reviewed and are negative [facility] Past Medical History Attestation statement: The following information was validated with the patient. Source: old records reviewed Medical History Diverticulitis IBS (irritable bowel syndrome) Hyperlipemia Surgical History History of shoulder surgery History of hand surgery Hx of colonoscopy Family History Family History Mother Atrial fibrillation Social History Social History Household Members: Spouse Housing: House Do you presently have visiting nurse or other home services: No Patient Tobacco Use Status: Former Tobacco user Smoked in Last 30 Days: No Use of substances other than those prescribed or required for medical reasons: No Advance Directives: No Advance Directives Information Provided: Yes Do you have a plan to hurt others: No Plan service: No Physical Exam 2 Vital Signs: Vital Signs: Last Vital Signs Temp 97.6 F 01/15/24 06:38 Pulse 46 L 01/15/24 06:38 Resp 16 01/15/24 06:38 BP 127/57 L 01/15/24 06:38 Pulse Ox 96 01/15/24 06:38 O2 Del Method Room Air 01/15/24 06:38 BMI result Body Mass Index 22.9 Appearance: Alert. Oriented X3. No acute distress. Eyes: Pupils equal, round and reactive to light. ENT: Pharynx normal. Neck: Normal inspection. Neck supple. CVS: tachycardic irregular heart rate and rhythm. Pulses normal. Respiratory: No respiratory distress. Breath sounds normal. Abdomen: Soft and non-tender. Skin: Skin warm and dry. Normal skin color. Normal skin turgor. Extremities: No lower extremity edema. No calf ttp Neuro: Oriented X 3. No motor deficit. No sensory deficit. Course Course Course Narrative: initial bolus HR down to 90s then low 100s, drip ordered Reevaluation(s) Reevaluation #1: signed out to Dr. Ashton pending repeat trop Medications Administered Generic Name Dose Route Start Last Admin Trade Name Freq PRN Reason Stop Dose Admin Diltiazem HCl 125 mg/ Sodium 125 mls @ 0 mls/hr 01/15/24 05:30 01/15/24 06:37 Chloride IVCONT 0 mg/hr .Q0M ZHENG 0 mls/hr Titration Protocol Per Protocol Discontinued Medications Generic Name Dose Route Start Last Admin Trade Name Poonam PRN Reason Stop Dose Admin Diltiazem HCl 10 mg 01/15/24 05:12 01/15/24 05:15 Diltiazem Hcl 50 Mg/10 Ml Vial IVPUSH 01/15/24 05:13 10 mg STAT STA Administration Medical Decision Making Medical Decision Making [facility] Narrative: 73 yo female with PMH of HTN on amlodipine, hypertrophic cardiomyopathy, IBS here with c/o palpitations and dyspnea at this time she is in afib with RVR - IV dilt and dilt gtt ordered. She will need trop x 2. No risk factors for VTE no signs of DVT at this time will need to keep HR down given hypertrophic cardiomyophathy. She has chadsvasc2 score of 3 she denies risk factors for bleeding - eliquis to be ordered. Differential Diagnosis Differential Diagnoses: The differential diagnosis associated with the presentation includes afib with RVR, lyte abnormality Admission/Observation Consideration of admission/observation: Escalation of care including admission/observation considered converted to bradycardia 635 - would hold toprol reviewed EMR and her HR is usually in the 50s does need eliquis denies any risk factors for bleeding Lab Data [facility] Lab Attestation statement: I reviewed the patient's lab results. 01/15/24 05:03 01/15/24 05:03 Labs: Lab Results 01/15/24 Range/Units 05:03 WBC 8.3 (4.8-10.8) X10*3/uL RBC 4.59 (4.20-5.50) X10*6/uL Hgb 14.2 (12.0-16.0) g/dl Hct 42.6 (37.0-47.0) % MCV 92.8 (80.0-98.0) fL MCH 30.9 (27.0-33.0) pg MCHC 33.3 (31.0-35.0) g/dl RDW 13.2 (11.0-16.0) % Plt Count 205 (160-400) X10*3/uL MPV 11.6 (9.4-12.3) fL Immature Gran % (Auto) 0.2 (0.0-0.4) % Neut % (Auto) 47.1 (45-73) % Lymph % (Auto) 40.8 H (20-40) % [place] % (Auto) 8.1 (2-11) % Eos % (Auto) 2.8 (0-4) % Baso % (Auto) 1.0 (0-2) % Lymph # (Auto) 3.4 (1.2-4.9) X10*3/uL [place] # (Auto) 0.7 (0.1-1.2) X10*3/uL Eos # (Auto) 0.2 (0.0-0.4) X10*3/uL Baso # (Auto) 0.1 (0.0-0.2) X10*3/uL Abs Immat Gran (auto) 0.02 (0.00-0.03) X10*3/uL Absolute Neuts (auto) 3.9 (2.0-8.3) x10*3/uL Absolute Nucleated RBC 0.000 (0.0-0.012) X10*3/uL Nucleated RBC % (auto) 0.0 (0.0-0.2) /100WBC PT 10.7 L (11.1-13.3) SEC INR 0.9 (0.9-1.1) APTT 28.8 (26.0-36.8) SEC Sodium 144 (135-145) mmol/L Potassium 3.3 (3.3-5.1) mmol/L Chloride 109 H (96-108) mmol/L Carbon Dioxide 25 (22-29) mmol/L Anion Gap 13 (12-20) BUN 16 (9-16) mg/dL Creatinine 0.71 (0.5-1.4) mg/dL Estim Creat Clear Calc 55.8 Estimated GFR > 60 Random Glucose 130 H (60-115) mg/dL Calcium 10.0 D (8.4-10.2) mg/dL Magnesium 2.0 (1.6-2.6) mg/dL Total Bilirubin 0.3 (0.0-1.0) mg/dL AST 21 (5-31) U/L ALT 16 (0-31) U/L Alkaline Phosphatase 78 (39-117) U/L Troponin I High Sens 20.9 H (<3.5-17.0) ng/L B-Natriuretic Peptide 465 H (<100) pg/mL Total Protein 7.8 (6.5-8.0) g/dL Albumin 4.3 (3.5-5.0) g/dL TSH 5.68 H (0.32-4.0) uIU/mL Free T4 0.87 (0.71-1.85) ng/dL Independent Interpretation I performed an independent interpretation of an: EKG and Plain X-Ray Interpretation: Rate: 133 Rhythm: afib [place]: normal Normal QRS complex. ST T wave : no JOSE, inverted t waves more pronounced but I, aVL, V4-V6 she has prior consistent with LVH qTC: 425 prior studies: prior T wave inversions in past The study has been interpreted contemporaneously by me. EKG #2 Rate: 46 Rhythm: sinus bradycardia [place]: normal Normal P waves. Normal MARTHA. Normal QRS complex. ST T wave : inverted t waves I avL V4-V6, no JOSE qTC: 428 prior studies: converted to sinus bradycardia The study has been interpreted contemporaneously by me. . Radiology Impression Discussion of test interpretation with radiology: I have reviewed the radiologist's reading. Independent Historian Clinical information obtained from an independent historian. History obtained from or confirmed by: Spouse External Record Review External record reviewed: Office record Critical Care Time Critical Care Time Critical Care Time: Yes Total Critical Care Time: 60 Attestation: review of records, IV dilt bolus, IV diltiazem gtt, repeat assessments I attest to this time spent taking care of the patient Discharge Plan Discharge Clinical Impression: Atrial fibrillation Patient Disposition: Still a Patient Instructions: A-fib (Atrial Fibrillation) (ED), Blood Thinners (ED) Additional Instructions: avoid alcohol and caffeine follow up with your doctor return for any worsening symptoms such as increased heart rate, chest pain, swelling, trouble breathing on eliquis - you need to seek immediate care for bleeding, head injury, bloody and black stools Prescriptions: No Action amoxicillin-pot clavulanate [Augmentin XR] 1,000-62.5 mg tablet extended release 12 hr 1 tab PO BID 10 Days Qty: 20 0RF dicyclomine 20 mg tablet 20 mg PO Q6H PRN (Reason: for abdominal pain) Qty: 90 1RF atorvastatin 10 mg tablet 10 mg PO DAILY amlodipine 5 mg tablet 5 mg PO DAILY Qty: 90 3RF Print Language: Urdu
[2024-01-15 05:47] LABS: TSH reflex Free T4 5.68 uIU/mL (0.32-4.0)
--- NOTE | 2024-01-15 05:54 | PC.NURSE ---
pt's rhythm continues to remain in afib with a HR fluctuating between 100-120bpm. provider notified/aware. otherwise vss and up to date. diltiazem drip increased to 15mg/hr. pt currently having chest xray completed. plan of care ongoing.
[2024-01-15 06:28] LABS: Free T4 (Free Thyroxine) 0.87 ng/dL (0.71-1.85)
--- NOTE | 2024-01-15 06:36 | ECG_ITS ---
Test Reason : REDO LOW HR Blood Pressure : / mmHG Vent. Rate : 046 BPM Atrial Rate : 052 BPM P-R Int : 128 ms QRS Dur : 106 ms QT Int : 490 ms P-R-T Axes : 062 021 181 degrees QTc Int : 428 ms Sinus bradycardia Left ventricular hypertrophy with repolarization abnormality ( Sokolow-Rodriguez , Man product , Romhilt-Amin ) Abnormal ECG When compared with ECG of 15-JAN-2024 04:46, Sinus rhythm has replaced Atrial fibrillation Vent. rate has decreased BY [address] no longer depressed in Inferior leads ST no longer depressed in Anterior leads Referred By: Marissa Wray Electronically Signed By:MRIELLA STROUD
--- NOTE | 2024-01-15 06:38 | PC.NURSE ---
pt noted to be sinus twin at 46bpm. diltiazem infusion paused at this time. provider notified/aware of findings. tech bedside performing ekg.
--- NOTE | 2024-01-15 08:28 | PC.NURSE ---
pt remains sinus twin at this time. otherwise vss and up to date. pt still declines chest sensation /chest pain/palpitations at this time. repeat troponin obtained/sent to lab. plan of care ongoing.
[2024-01-15 09:01] LABS: Troponin-I High Sensitivity 227.3 ng/L (<3.5-17.0)
--- NOTE | 2024-01-15 09:03 | PC.NURSE ---
critical lab value - troponin of 227.3 received at this time. dr. waters notified/aware of results.
--- NOTE | 2024-01-15 10:28 | PC.NURSE ---
cardiology consult being completed at this time.
[2024-01-15] MEDS: Metoprolol Succinate ER 25 MG TAB.ER.24H PO (12:04)
[2024-01-15] MEDS: Apixaban 5 MG TABLET PO (12:04)
--- NOTE | 2024-01-15 12:32 | PM.CNCAR ---
History of Present Illness History of Present Illness Date of Service: 01/15/24 Requesting physician: Noé Ashton Chief complaint: PAF Narrative: 73-year-old female who is a patient of Dr. Lilly and has apical hypertrophy presenting with palpitations and shortness of breath. She was noticed to be in AFib with RVR. She was given Cardizem in the ER and converted sinus rhythm. She has mild elevated troponin level. She has significantly abnormal EKG with precordial ST depression and T-wave inversions due to apical hypertrophy. Since in sinus rhythm, she has not had any further symptoms. She has bradycardia at rest. She was previously not on anticoagulation. Blood pressure is elevated. [facility]LY [facility] Past Medical History Medical History Diverticulitis IBS (irritable bowel syndrome) Hyperlipemia Family History Family History Mother Atrial fibrillation Surgical History Surgical History History of shoulder surgery History of hand surgery Hx of colonoscopy Social History Social History Household Members: Spouse Housing: House Do you presently have visiting nurse or other home services: No Patient Tobacco Use Status: Former Tobacco user Smoked in Last 30 Days: No Use of substances other than those prescribed or required for medical reasons: No Advance Directives: No Advance Directives Information Provided: Yes Do you have a plan to hurt others: No Plan service: No Meds Allergies Allergy/AdvReac Type Severity Reaction Status Date / Time latex Allergy Intermediate hives Verified 01/15/24 04:53 narcotics Allergy Intermediate Unknown Uncoded 01/15/24 04:53 Home Medications ?Medication ?Instructions ?Recorded ?Confirmed ?Last Taken ?Type atorvastatin 10 mg tablet 10 mg PO DAILY 02/18/23 10/05/23 Unknown History Physical Exam Vital Signs: Vital Signs: Last Vital Signs Temp 98.2 F 01/15/24 12:18 Pulse 57 01/15/24 12:18 Resp 16 01/15/24 12:18 BP 140/69 H 01/15/24 12:18 Pulse Ox 100 01/15/24 12:18 O2 Del Method Room Air 01/15/24 12:18 BMI result Body Mass Index 22.9 GENERAL APPEARANCE: in no acute distress, pleasant. NECK: no carotid bruit, no jugular venous distention. SKIN: no suspicious lesions, warm and dry. HEART: no murmurs, regular rate and rhythm. LUNGS: clear to auscultation bilaterally. ABDOMEN: soft, nontender. EXTREMITIES: no edema. PERIPHERAL PULSES: equal. NEUROLOGIC: No gross deficits, AAO X 3 Objective Labs and Meds 01/15/24 05:03 01/15/24 05:03 Lab results: Laboratory Results - last 24 hr 01/15/24 01/15/24 05:03 08:23 WBC 8.3 RBC 4.59 Hgb 14.2 Hct 42.6 MCV 92.8 MCH 30.9 MCHC 33.3 RDW 13.2 Plt Count 205 MPV 11.6 Immature Gran % (Auto) 0.2 Neut % (Auto) 47.1 Lymph % (Auto) 40.8 H [place] % (Auto) 8.1 Eos % (Auto) 2.8 Baso % (Auto) 1.0 Lymph # (Auto) 3.4 [place] # (Auto) 0.7 Eos # (Auto) 0.2 Baso # (Auto) 0.1 Abs Immat Gran (auto) 0.02 Absolute Neuts (auto) 3.9 Absolute Nucleated RBC 0.000 Nucleated RBC % (auto) 0.0 PT 10.7 L INR 0.9 APTT 28.8 Sodium 144 Potassium 3.3 Chloride 109 H Carbon Dioxide 25 Anion Gap 13 BUN 16 Creatinine 0.71 Estim Creat Clear Calc 55.8 Estimated GFR > 60 Random Glucose 130 H Calcium 10.0 D Magnesium 2.0 Total Bilirubin 0.3 AST 21 ALT 16 Alkaline Phosphatase 78 Troponin I High Sens 20.9 H 227.3 H* D B-Natriuretic Peptide 465 H Total Protein 7.8 Albumin 4.3 TSH 5.68 H Free T4 0.87 Imaging Radiologist's impression: Impressions Chest X-Ray 01/15/24 05:43 IMPRESSION: No acute cardiopulmonary findings. Electronically signed by: Delvin Wright MD 01/15/2024 06:25 AM EDT Assessment and Plan (1) Atrial fibrillation, new onset: Status: Acute Plan 73-year-old female with paroxysmal atrial fibrillation on background of apical hypertrophy. She has mildly elevated troponin levels. This is clearly a type 2 injury. Blood pressure is mildly elevated. She should continue her home dose of amlodipine 5 mg daily. She is bradycardic at rest-will add metoprolol 25 mg extended release once daily. She should be anticoagulated for stroke prevention. We will arrange a cardiac event monitor for her as outpatient. If she has recurrent atrial fibrillation episodes then she may need rhythm control strategy. In that case we may have to consider pacemaker placement depending on how bradycardic she is getting on the cardiac event monitor. Thank you for allowing me to participate in the care of your patient. Please feel free to contact me if you have any questions. Procedures Date of Service Date of Service: 01/15/24
== END 2024-01-15 12:18 | disposition home or self-care (01) ==
PROVIDERS: Emergency Medicine; Emergency Provider Emergency Medicine Emergency Medical Services; PCP Internal Medicine
DX: I49.9 Cardiac arrhythmia, unspecified (principal); R06.02 Shortness of breath; Z79.899 Other long term (current) drug therapy
CPT/HCPCS: 36415; 71045; 80053; 83735; 83880; 84439; 84443; 84484; 85025; 85610; 85730; 93005; 96365; 96375; 99284; 99285

== ENCOUNTER → 2024-01-15 05:20 | Outpatient (BNV) | payer MEDICARE, SELFPAY | PROVIDERS: Emergency Provider Emergency Medicine Emergency Medical Services; PCP Internal Medicine; Visit Provider Internal Medicine Cardiovascular Disease | DX: I48.0 Paroxysmal atrial fibrillation (principal); I42.2 Other hypertrophic cardiomyopathy | CPT/HCPCS: 99283 ==

== ENCOUNTER → 2024-01-23 10:08 | Outpatient (BNV) | payer MEDICARE, SELFPAY | PROVIDERS: PCP Internal Medicine; Visit Provider Internal Medicine | DX: I49.3 Ventricular premature depolarization (principal); I47.10 Supraventricular tachycardia, unspecified | CPT/HCPCS: 93272 ==

== ENCOUNTER → 2024-01-23 13:28 | Outpatient (REF) | payer MEDICARE, SELFPAY ==
--- NOTE | 2024-01-23 10:08 | HM_ITS ---
* Total procedure time 30 days. Wear time 28 days. * Underlying rhythm is sinus with an average rate of 60/Min. * Rare supraventricular ectopy. * Ventricular ectopy burden 1.5%. Noted wide complex run of 6 beats seems rather supraventricular. * No significant bradycardia or high-grade or high-grade AV blocks. * Sharp pain described by patient associated with sinus bradycardia. MTDD
== END ==
LOC: HO.CARD 13:28
PROVIDERS: PCP Internal Medicine; Visit Provider Internal Medicine Cardiovascular Disease
DX: I48.91 Unspecified atrial fibrillation (principal)
CPT/HCPCS: 93270

== ENCOUNTER 2024-01-30 16:42 | Emergency (ER) | payer MEDICARE, SELFPAY ==
--- NOTE | ~2024-01-30 | CT_ITS ---
EXAMINATION: CT ABDOMEN AND PELVIS WITH CONTRAST CLINICAL INFORMATION: Abdominal pain. COMPARISON: None available. TECHNIQUE: Multidetector volumetric images were obtained from the superior aspect of the liver through the pubic symphysis following administration 85 mL of Omnipaque 350 intravenous contrast. Sagittal and coronal reformatted images were obtained on the technologist's workstation. Oral contrast: No This CT examination was performed using dose optimization techniques as appropriate, variously including the following: *Automated exposure control *Adjustment of mA and/or kV according to patient size (this includes techniques or standardized protocols for targeted exams where dose is matched to indication/reason for exam; i.e. extremities or head) *Use of iterative reconstruction technique DLP: 424 mGy-cm FINDINGS: LUNG BASES: There is minimal scarring at the lung bases. LIVER, GALLBLADDER, AND BILIARY TREE: There are stable hepatic cysts. There is no intrahepatic biliary duct dilatation. The gallbladder is unremarkable with no evidence of radiopaque gallstones, gallbladder wall thickening, or obvious pericholecystic inflammatory changes. PANCREAS: Unremarkable. SPLEEN: Unremarkable. ADRENAL GLANDS: Unremarkable. KIDNEYS AND URETERS: The kidneys are normal in size, shape, and attenuation. No hydronephrosis, hydroureter, or calculi seen. No perinephric stranding. This is stable peripherally calcified structure mid to lower pole left kidney measuring 1.5 cm. BLADDER: Unremarkable. GASTROINTESTINAL TRACT: There are diverticula of the descending and sigmoid colon with mid descending colonic thickening and surrounding infiltration. The appendix is visualized and is within normal limits. ABDOMINAL WALL: No significant hernia is appreciated. LYMPH NODES: Normal. VASCULAR: There is atherosclerotic plaque of the abdominal aorta and proximal branches PELVIC VISCERA: Uterine fibroids are noted measuring up to 3.5 cm. There is minimal free fluid within the pelvis. OSSEOUS STRUCTURES: There is diffuse thoracolumbar degenerative changes with grade 1 anterolisthesis of L5-S1 similar to prior. CT/CT abdomen pelvis w IV con IMPRESSION: 1. Diverticulitis of the mid descending colon. 2. Stable hepatic cysts. 3. Uterine fibroids. Fleischner guidelines were followed. Electronically signed by: Bebeto Mckinney MD 01/31/2024 04:44 AM EDT
[2024-01-30 17:38] VITALS: BP 156/66; PULSE 59; RESP 18; TEMP 36.8; O2SAT 98; BMI 23.1
--- NOTE | 2024-01-30 17:43 | ED_ITS ---
HPI - Abdominal Pain General Chief Complaint: Abdominal Pain Stated Complaint: abd pain Time Seen by Provider: 01/31/24 00:01 Source: patient Mode of arrival: ambulatory Limitations: no limitations History of Present Illness HPI narrative: Patient is a 73-year-old female presents emergency department for evaluation of left lower quadrant abdominal pain onset 2 days ago has associated chills. She reports a history of diverticulitis in the past with similar symptoms. She denies associated nausea vomiting diarrhea constipation hematochezia or melena. Denies dysuria, urinary frequency/urgency, hematuria, flank pain. Denies any precipitating trauma. Related Data Home Medications ?Medication ?Instructions ?Recorded ?Confirmed atorvastatin 10 mg tablet 10 mg PO DAILY 02/18/23 10/05/23 Previous Rx's ?Medication ?Instructions ?Recorded amlodipine 5 mg tablet 5 mg PO DAILY #90 tabs 07/10/23 amoxicillin-potassium clavulanate 1 tab PO BID 10 days #20 tabs 10/16/23 1,000 mg-62.5 mg tablet,ext.rel 12hr (Augmentin XR) dicyclomine 20 mg tablet 20 mg PO Q6H PRN for abdominal 01/01/24 pain #90 tabs apixaban 5 mg tablet (Eliquis) 5 mg PO BID #90 tabs 01/15/24 metoprolol succinate 25 mg 25 mg PO DAILY #30 tabs 01/15/24 tablet,extended release 24 hr cefuroxime axetil 500 mg tablet 500 mg PO BID 10 days #20 tabs 01/31/24 metronidazole 500 mg tablet 500 mg PO TID #30 tabs 01/31/24 tramadol 50 mg tablet 50 mg PO Q8-10H PRN pain #20 tabs 01/31/24 Allergies Allergy/AdvReac Type Severity Reaction Status Date / Time latex Allergy Intermediate hives Verified 01/30/24 17:41 narcotics Allergy Intermediate Unknown Uncoded 01/15/24 04:53 Review of Systems Review of Systems Yes all other systems are reviewed and are negative PMFSH Past Medical History Attestation statement: The following information was validated with the patient. Source: old records reviewed Medical History Diverticulitis IBS (irritable bowel syndrome) Hyperlipemia Surgical History History of shoulder surgery History of hand surgery Hx of colonoscopy Family History Family History Mother Atrial fibrillation Social History Social History Household Members: Spouse Housing: House Do you presently have visiting nurse or other home services: No Patient Tobacco Use Status: Former Tobacco user Advance Directives: No Advance Directives Information Provided: Yes service: No Physical Exam ED Vital Signs: Vital Signs - 24 hr 01/30/24 17:38 01/30/24 20:22 01/31/24 00:00 Temperature 98.3 F 97.1 F 98.1 F Pulse Rate 59 57 60 Respiratory Rate 18 16 16 Blood Pressure 156/66 H 139/86 145/52 H Pulse Oximetry 98 97 99 Oxygen Delivery Method Room Air Room Air Room Air 01/31/24 01:42 01/31/24 02:00 01/31/24 04:00 Temperature 98.3 F 99.1 F Pulse Rate 52 58 Respiratory Rate 16 16 16 Blood Pressure 125/52 L 121/79 Pulse Oximetry 94 94 Oxygen Delivery Method Room Air Room Air 01/31/24 06:00 Temperature 98.7 F Pulse Rate 51 Respiratory Rate 16 Blood Pressure 119/50 L Pulse Oximetry 95 Oxygen Delivery Method Room Air BMI result Body Mass Index 23.1 Appearance: Alert.?Oriented to person, place and time. No acute distress.?Normal affect. Neck: Normal inspection.? Neck supple.?? CVS: Heart sounds normal. Normal heart rate and rhythm.? Pulses normal.?? Respiratory: No respiratory distress.? Lung sounds clear to auscultation bilaterally?? Abdomen: Soft with left lower quadrant tenderness upon palpation, guarding. No rigidity.. Normoactive bowel sounds. No pulsatile mass.?? Skin: Skin warm and dry.? Normal skin color.? Extremities: No lower extremity edema.? Neuro: Moves all extremities spontaneously. Sensation intact bilaterally. Ambulates with normal steady gait. Course Course Course Narrative: Rapid medical exam performed by Suzie Wyatt PA-C. 73-year-old female with history of diverticulitis presents with left lower abdominal pain times 2-3 days. Associated chills at home no objective fevers. Patient seen in urgent Care, she was sent here for further assessment. On exam, the patient has some degree of generalized tenderness to palpation over left mid to lower abdomen, most focal left lower abdomen with mild voluntary guarding. We will be ordering screening labs, I foresee her having a CT scan. Patient will return to the waiting room pending a full evaluation. Reevaluation(s) Reevaluation #1: Patient signed out to ED attending Dr. Moran pending CT AP Time: 02:04 Medical Decision Making Medical Decision Making [facility] Narrative: Patient is a 73-year-old female with past medical history of hypertension, hypertrophic cardiomyopathy, hyperlipidemia, IBS, atrial fibrillation on Eliquis presenting to emergency department for evaluation of left lower quadrant abdominal pain as per HPI. On examination she does have tenderness upon palpation left lower quadrant with guarding, however is soft without rigidity.Will obtain CBC to evaluate for leukocytosis/ anemia, CMP and lipase to evaluate for abnormal electrolytes /abnormal renal function/ abnormal hepatic/biliary function, CT of the abdomen and pelvis and Urinalysis. Patient with uncomplicated diverticulitis received IV Zosyn in the ER will discharge patient home on p.o. Ceftin and Flagyl patient feel comfortable taking p.o. antibiotics advised to have clear liquids and follow up as outpatient Differential Diagnosis Differential Diagnoses: The differential diagnosis associated with the presentation includes (Diverticulitis, colitis, bowel obstruction, pyelonephritis, obstructive calculi) Admission/Observation Consideration of admission/observation: Escalation of care including admission/observation considered Lab Data [facility] Lab Attestation statement: I reviewed the patient's lab results. CBC reveals leukocytosis with left shift, no anemia, no thrombocytopenia. No electrolyte derangement. No MARGARET. LFTs lipase within normal range. Urinalysis with microscopic hematuria and 2+ leukocyte esterase, urine WBC 21-50, no urine bacteria seen, asy,ptomatic 01/30/24 17:57 01/30/24 17:57 Labs: Lab Results 01/30/24 01/30/24 Range/Units 17:57 19:08 WBC 14.7 H (4.8-10.8) X10*3/uL RBC 4.06 L (4.20-5.50) X10*6/uL Hgb 12.8 (12.0-16.0) g/dl Hct 38.0 (37.0-47.0) % MCV 93.6 (80.0-98.0) fL MCH 31.5 (27.0-33.0) pg MCHC 33.7 (31.0-35.0) g/dl RDW 13.2 (11.0-16.0) % Plt Count 197 (160-400) X10*3/uL MPV 12.1 (9.4-12.3) fL Immature Gran % (Auto) 0.4 (0.0-0.4) % Neut % (Auto) 76.2 H (45-73) % Lymph % (Auto) 14.9 L (20-40) % [place] % (Auto) 7.8 (2-11) % Eos % (Auto) 0.4 (0-4) % Baso % (Auto) 0.3 (0-2) % Lymph # (Auto) 2.2 (1.2-4.9) X10*3/uL [place] # (Auto) 1.2 (0.1-1.2) X10*3/uL Eos # (Auto) 0.1 (0.0-0.4) X10*3/uL Baso # (Auto) 0.1 (0.0-0.2) X10*3/uL Abs Immat Gran (auto) 0.06 H (0.00-0.03) X10*3/uL Absolute Neuts (auto) 11.2 H (2.0-8.3) x10*3/uL Absolute Nucleated RBC 0.000 (0.0-0.012) X10*3/uL Nucleated RBC % (auto) 0.0 (0.0-0.2) /100WBC Sodium 138 (135-145) mmol/L Potassium 3.9 (3.3-5.1) mmol/L Chloride 106 (96-108) mmol/L Carbon Dioxide 26 (22-29) mmol/L Anion Gap 10 L (12-20) BUN 13 (9-16) mg/dL Creatinine 0.70 (0.5-1.4) mg/dL Estim Creat Clear Calc 56.6 Estimated GFR > 60 Random Glucose 108 (60-115) mg/dL Calcium 9.8 (8.4-10.2) mg/dL Magnesium 2.2 (1.6-2.6) mg/dL Total Bilirubin 0.8 (0.0-1.0) mg/dL AST 17 (5-31) U/L ALT 13 (0-31) U/L Alkaline Phosphatase 81 (39-117) U/L Total Protein 7.8 (6.5-8.0) g/dL Albumin 4.2 (3.5-5.0) g/dL Lipase 19 (8-78) U/L Urine Color Yellow Urine Appearance Clear Urine pH 6.0 (5.0-9.0) Ur Specific [place] 1.020 (1.005-1.025) Urine Protein 30 (1+) H (Neg-Trace) mg/dL Urine Glucose (UA) Negative (Negative) mg/dL Urine Ketones 80 (Negative) mg/dL Urine Blood Large (3+) H (Negative) Urine Nitrite Negative (Negative) Ur Leukocyte Esterase Moderate (2+) H (Negative) Urine RBC >20 H (0-2) /HPF Urine WBC 21-50 H (0-5) /HPF Ur Squamous Epith Cells 0-2 (0-2) /HPF Urine Bacteria None Seen (None Seen) Hyaline Casts 0-2 (0-2) /LPF Radiology Impression Discussion of test interpretation with radiology: I have reviewed the radiologist's reading. Radiologist Impression: [place] [id number] CT Scan Report Signed Patient: Sheyla Baugh MR#: [id number] : 1950 Acct:[id number] Age/Sex: 73 / F ADM Date: 01/30/24 Loc: .ED Attending Dr: Ordering Physician: Carrie Everett CNP Date of Service: 01/31/24 Procedure(s): CT abdomen pelvis w IV con Accession Number(s): [id number] cc: Carrie Everett CNP; Madyson Martinez MD~ EXAMINATION: CT ABDOMEN AND PELVIS WITH CONTRAST CLINICAL INFORMATION: Abdominal pain. COMPARISON: None available. TECHNIQUE: Multidetector volumetric images were obtained from the superior aspect of the liver through the pubic symphysis following administration 85 mL of Omnipaque 350 intravenous contrast. Sagittal and coronal reformatted images were obtained on the technologist's workstation. Oral contrast: No This CT examination was performed using dose optimization techniques as appropriate, variously including the following: *Automated exposure control *Adjustment of mA and/or kV according to patient size (this includes techniques or standardized protocols for targeted exams where dose is matched to indication/reason for exam; i.e. extremities or head) *Use of iterative reconstruction technique DLP: 424 mGy-cm FINDINGS: LUNG BASES: There is minimal scarring at the lung bases. LIVER, GALLBLADDER, AND BILIARY TREE: There are stable hepatic cysts. There is no intrahepatic biliary duct dilatation. The gallbladder is unremarkable with no evidence of radiopaque gallstones, gallbladder wall thickening, or obvious pericholecystic inflammatory changes. PANCREAS: Unremarkable. SPLEEN: Unremarkable. ADRENAL GLANDS: Unremarkable. KIDNEYS AND URETERS: The kidneys are normal in size, shape, and attenuation. No hydronephrosis, hydroureter, or calculi seen. No perinephric stranding. This is stable peripherally calcified structure mid to lower pole left kidney measuring 1.5 cm. BLADDER: Unremarkable. GASTROINTESTINAL TRACT: There are diverticula of the descending and sigmoid colon with mid descending colonic thickening and surrounding infiltration. The appendix is visualized and is within normal limits. ABDOMINAL WALL: No significant hernia is appreciated. LYMPH NODES: Normal. VASCULAR: There is atherosclerotic plaque of the abdominal aorta and proximal branches PELVIC VISCERA: Uterine fibroids are noted measuring up to 3.5 cm. There is minimal free fluid within the pelvis. OSSEOUS STRUCTURES: There is diffuse thoracolumbar degenerative changes with grade 1 anterolisthesis of L5-S1 similar to prior. CT/CT abdomen pelvis w IV con IMPRESSION: 1. Diverticulitis of the mid descending colon. 2. Stable hepatic cysts. 3. Uterine fibroids. Fleischner guidelines were followed. Electronically signed by: Bebeto Mckinney MD 01/31/2024 04:44 AM EDT Dictated By: Bebeto Mckinney MD Signed By: <Electronically signed by Bebeto Mckinney MD in OV> 01/31/24 0444 DD/ 0220 TD/TT: 01/31/24 0245 Risk And Compliance Analytics Director: External Record Review External record reviewed: Outpatient record Prescription Management I considered prescription management with: Pain Medication and Antibiotic Medications Administered Discontinued Medications Generic Name Dose Route Start Last Admin Trade Name Freq PRN Reason Stop Dose Admin Sodium Chloride 1,000 mls @ 999 mls/hr 01/31/24 00:30 01/31/24 02:45 Ns IV 01/31/24 01:30 Infused .Q1H1M ZHENG Infusion Piperacillin Sod/Tazobactam 50 mls @ 100 mls/hr 01/31/24 05:06 01/31/24 06:06 Sod 3.375 gm/ Sodium Chloride IV 01/31/24 05:35 Infused ONCE ONE Infusion Iohexol 85 ml 01/31/24 02:41 01/31/24 02:42 Iohexol 350 Mg/Ml 100 Ml Infus..Btl IV 01/31/24 02:42 85 ml ONCE ONE Administration Morphine Sulfate 1 mg 01/31/24 01:01 01/31/24 01:42 Morphine Sulfate 2 Mg/Ml Cartridge IVPUSH 01/31/24 01:02 1 mg ONCE ONE Administration Protocol Discharge Plan Discharge Clinical Impression: Diverticulitis Patient Disposition: Home, Self-Care Instructions: Diverticulitis (ED) Additional Instructions: Drink clear liquids advanced as tolerated Antibiotic as prescribed Report to the ER/PCP if pain gets worse/fever/vomiting Prescriptions: New cefuroxime axetil 500 mg tablet 500 mg PO BID 10 Days Qty: 20 0RF metronidazole 500 mg tablet 500 mg PO TID Qty: 30 0RF tramadol 50 mg tablet 50 mg PO Q8-10H PRN (Reason: pain) Qty: 20 0RF No Action amoxicillin-pot clavulanate [Augmentin XR] 1,000-62.5 mg tablet extended release 12 hr 1 tab PO BID 10 Days Qty: 20 0RF dicyclomine 20 mg tablet 20 mg PO Q6H PRN (Reason: for abdominal pain) Qty: 90 1RF atorvastatin 10 mg tablet 10 mg PO DAILY metoprolol succinate 25 mg tablet extended release 24 hr 25 mg PO DAILY Qty: 30 0RF Eliquis 5 mg tablet 5 mg PO BID Qty: 90 0RF amlodipine 5 mg tablet 5 mg PO DAILY Qty: 90 3RF Print Language: Arabic
[2024-01-30 18:02] LABS: MANUAL DIFF FLAG NO
[2024-01-30 18:04] LABS: Basophils Absolute Auto 0.1 X10*3/uL (0.0-0.2); Basophils Percent Auto 0.3 % (0-2); Eosinophils Absolute Auto 0.1 X10*3/uL (0.0-0.4); Eosinophils Percent Auto 0.4 % (0-4); Hemoglobin 12.8 g/dl (12.0-16.0); Imm Gran Abs Auto 0.06 X10*3/uL (0.00-0.03); Imm Gran Pct Auto 0.4 % (0.0-0.4); Lymphocytes Absolute Auto 2.2 X10*3/uL (1.2-4.9); Lymphocytes Percent Auto 14.9 % (20-40); Mean Corpuscular HGB Conc 33.7 g/dl (31.0-35.0); Mean Corpuscular Hemoglobin 31.5 pg (27.0-33.0); Mean Corpuscular Volume 93.6 fL (80.0-98.0); Mean Platelet Volume 12.1 fL (9.4-12.3); Monocytes Absolute Auto 1.2 X10*3/uL (0.1-1.2); Monocytes Percent Auto 7.8 % (2-11); Neutrophils Absolute Auto 11.2 x10*3/uL (2.0-8.3); Neutrophils Percent Auto 76.2 % (45-73); Platelet Count 197 X10*3/uL (160-400); Red Blood Count 4.06 X10*6/uL (4.20-5.50); Red Cell Distribution Width 13.2 % (11.0-16.0); White Blood Count 14.7 X10*3/uL (4.8-10.8)
[2024-01-30 18:31] LABS: Alanine Aminotransferase 13 U/L (0-31); Albumin Level 4.2 g/dL (3.5-5.0); Alkaline Phosphatase 81 U/L (39-117); Anion Gap 10 (12-20); Aspartate Amino Transferase 17 U/L (5-31); Bilirubin Total 0.8 mg/dL (0.0-1.0); Blood Urea Nitrogen 13 mg/dL (9-16); Calcium 9.8 mg/dL (8.4-10.2); Carbon Dioxide 26 mmol/L (22-29); Chloride 106 mmol/L (96-108); Creatinine Clr Calc Pharmacy 56.6; Estimated Glomerular Filt Rate > 60; Glucose Random 108 mg/dL (60-115); Lipase 19 U/L (8-78); Magnesium 2.2 mg/dL (1.6-2.6); Potassium 3.9 mmol/L (3.3-5.1); Sodium 138 mmol/L (135-145)
[2024-01-30 19:15] LABS: Appearance Urine Clear; Color Urine Yellow; Glucose Urine UA Negative (Negative); Leukocyte Esterase Urine Moderate (2+) (Negative); Nitrite Urine Negative (Negative); UMIC TRIGGER UACC YES; Urine Blood Large (3+) (Negative); Urine Ketones 80 mg/dL (Negative); Urine Protein 30 (1+) mg/dL (Neg-Trace)
[2024-01-30 19:18] LABS: Bacteria Urine None Seen (None Seen); Hyaline Casts Urine 0-2 /LPF (0-2); RBC Urine >20 /HPF (0-2); Squamous Epithelial Cell Urine 0-2 /HPF (0-2); UACC Culture Trigger YES; WBC Urine 21-50 /HPF (0-5)
[2024-01-30 19:42] LABS: Total Protein 7.8 g/dL (6.5-8.0)
[2024-01-30 20:22] VITALS: BP 139/86; PULSE 57; RESP 16; TEMP 36.2; O2SAT 97
[2024-01-31] VITALS: BP 145/52; PULSE 60; RESP 16; TEMP 36.7; O2SAT 99
[2024-01-31 01:42] VITALS: RESP 16
[2024-01-31] MEDS: Morphine Sulfate 2 MG/ML CARTRIDGE 1 MG IVPUSH (01:42)
[2024-01-31] MEDS: 0.9 % Sodium Chloride 1,000 ML 999 ML IV (01:42)
[2024-01-31 02:00] VITALS: BP 125/52; PULSE 52; RESP 16; TEMP 36.8; O2SAT 94
[2024-01-31] MEDS: iohexoL 350 MG/ML 100 ML INFUS..BTL 85 ML IV (02:42)
[2024-01-31 04:00] VITALS: BP 121/79; PULSE 58; RESP 16; TEMP 37.3; O2SAT 94
[2024-01-31] MEDS: Piperacillin Sodium/Tazobactam 3.375 GM in 0.9 % Sodium Chloride 50 ML IV (05:19)
[2024-01-31 06:00] VITALS: BP 119/50; PULSE 51; RESP 16; TEMP 37.1; O2SAT 95
[2024-01-31 06:47] VITALS: BP 119/50; PULSE 51; RESP 16; TEMP 37.1; O2SAT 95
== END 2024-01-31 06:48 | disposition home or self-care (01) ==
PROVIDERS: Physician Assistant Medical; Emergency Provider Internal Medicine; PCP Internal Medicine
DX: K57.32 Diverticulitis of large intestine without perforation or abscess without bleeding (principal); R10.32 Left lower quadrant pain; Z79.899 Other long term (current) drug therapy
CPT/HCPCS: 36415; 74177; 80053; 81001; 83690; 83735; 85025; 87086; 96361; 96365; 96375; 99284; J2270; J2543; Q9967

== ENCOUNTER 2024-04-08 10:27 | Outpatient (AMB) | payer MEDICARE, SELFPAY ==
--- NOTE | 2024-04-08 10:39 | A.OFFVIS_ITS ---
Vital Signs 04/08/24 10:40 Height 5 ft 2 in Weight 125 lb 10.616 oz BMI 23.0 BP 138/52 L Blood Pressure Location Lt brachial Position Sitting Pulse 49 L Pulse Source Pulse Oximeter Intake Visit Reasons: 6m follow up/Holter [employer] Tender Required: No Accompanied by: Self / Same As Patient Allergies latex Allergy (Intermediate, Verified 01/30/24 17:41) hives narcotics Allergy (Intermediate, Uncoded 01/15/24 04:53) Unknown Medication List - Last Reconciled 04/08/24 by Justus Lilly MD amlodipine 5 mg PO DAILY apixaban (Eliquis) 5 mg PO BID atorvastatin 10 mg PO DAILY dicyclomine 20 mg PO Q6H PRN metoprolol succinate ER 25 mg PO DAILY HPI Comments Details: Sheyla returns for follow-up. To recall, she was recently seen in consultation regarding abnormal EKG. She came for colonoscopy EKG was abnormal and that led to cardiac referral. Patient herself did not have any symptoms or cardiac history. Suspected to have chronic hypertension but not treated. Then started amlodipine. She underwent workup including echocardiogram/stress test and diagnosed to have apical variant hypertrophic cardiomyopathy. Then it seems that she had hospitalization for atrial fibrillation rapid rate and started on beta-blockers. Currently, she states that she feels very tired and fatigued and sleepy but otherwise no clear-cut cardiac symptoms like angina. [facility] Medical History Diverticulitis IBS (irritable bowel syndrome) Hyperlipemia Surgical History History of shoulder surgery History of hand surgery Hx of colonoscopy Family History Mother Atrial fibrillation Social History (Updated 04/08/24 @ 10:45 by Ni Estevez CMA) Household Members: Spouse Housing: House Do you presently have visiting nurse or other home services: No Alcohol intake: current Alcohol intake frequency: holidays/special occasions only Patient Tobacco Use Status: Former Tobacco user service: No Review of Systems Const Denies chills, Denies fatigue, Denies fever(s), Denies weight gain and Denies weight loss ENT Denies dizziness Card Denies chest pain, Denies leg edema, Denies lightheadedness, Denies palpitations, Reports dyspnea on exertion, Denies orthopnea and Denies other Resp Denies cough and Reports dyspnea on exertion GI Denies hematochezia and Denies change in stool character Musc Denies abnormal gait, Denies muscle weakness, Denies numbness, Denies radiating pain into limb and Denies tingling Neuro Denies abnormal gait, Denies dizziness, Denies numbness and Denies tingling Endo Denies fatigue and Denies palpitations Physical Exam Vital Signs: Last Vital Signs Pulse 49 L 04/08/24 10:40 BP 138/52 L 04/08/24 10:40 BMI result Body Mass Index 23.0 Const General: comfortable and no acute distress Orientation/consciousness: patient oriented x3 HEENT Other: Unremarkable Head: Yes normal to inspection Neck Neck: Yes normal visual inspection Chest Chest palpation & inspection: normal inspection of the chest Resp Auscultation: clear to auscultation bilaterally Cardio Palpation: normal PMI Heart sounds: S1 normal heart sound present, S2 normal heart sound present, no gallops, no murmurs and no rubs GI Palpation (GI): Soft to palpation Back/Spine/Pelvis Other: unremarkable Skin General skin exam: no rashes or lesions noted Neuro General: patient oriented x3 Extrem General: Yes normal to inspection Psych Mental Status: mental status grossly normal Assessment & Plan Assessment & Plan (1) Apical variant hypertrophic cardiomyopathy: Code(s): I42.2 - Other hypertrophic cardiomyopathy Category: Medical Plan: In the echocardiogram, there is clear evidence of apical hypertrophic cardiomyopathy. Myocardial perfusion imaging study was normal. In the ETT component, no chest discomfort; 7 METS exercise capacity; hypertensive blood pressure response. Obtain cardiac MRI. Family screening also discussed. She does not have any high-risk markers. (2) Paroxysmal atrial fibrillation: Code(s): I48.0 - Paroxysmal atrial fibrillation Category: Medical Plan: Recent hospitalization for the same. She is on beta-blockers but she states she gets tired and fatigued. Hence cut back on the dose to once a day. Continue anticoagulation. (3) Hypertension: Code(s): I10 - Essential (primary) hypertension Category: Medical Plan: On amlodipine. No changes for now. Orders: Orders MR cardiac morph fnct w con Today I42.2 - Other hypertrophic cardiomyopathy Basic Metabolic Panel Today I42.2 - Other hypertrophic cardiomyopathy Medications: Refilled apixaban (Eliquis) 5 mg PO BID 90 tabs 3RF Coding Level of Care Code Est Pt Level 4 (39415) Diagnoses Apical variant hypertrophic cardiomyopathy I42.2 Paroxysmal atrial fibrillation I48.0 Hypertension I10
[2024-04-08 10:40] VITALS: BP 138/52; PULSE 49; BMI 23.0
== END 2024-04-08 11:26 | disposition home or self-care (01) ==
PROVIDERS: PCP Internal Medicine; Visit Provider Internal Medicine
DX: I42.2 Other hypertrophic cardiomyopathy (principal); I48.0 Paroxysmal atrial fibrillation; I10 Essential (primary) hypertension
CPT/HCPCS: 99214

== ENCOUNTER → 2024-04-08 10:27 | Outpatient (BNVA) | payer MEDICARE, SELFPAY | PROVIDERS: PCP Internal Medicine; Visit Provider Internal Medicine | DX: I42.2 Other hypertrophic cardiomyopathy (principal); I48.0 Paroxysmal atrial fibrillation; I10 Essential (primary) hypertension | CPT/HCPCS: 99212 ==

== ENCOUNTER 2024-05-06 10:57 | Outpatient (REF) | payer MEDICARE, SELFPAY ==
[2024-05-06 12:00] LABS: Anion Gap 10 (12-20); Blood Urea Nitrogen 20 mg/dL (9-16); Calcium 9.6 mg/dL (8.4-10.2); Carbon Dioxide 28 mmol/L (22-29); Chloride 109 mmol/L (96-108); Estimated Glomerular Filt Rate > 60; Glucose Random 94 mg/dL (60-115); Potassium 4.3 mmol/L (3.3-5.1); Sodium 143 mmol/L (135-145)
== END 2024-05-06 10:58 | disposition home or self-care (01) ==
LOC: HO.LAB 10:57
PROVIDERS: PCP Internal Medicine; Visit Provider Internal Medicine
DX: I42.2 Other hypertrophic cardiomyopathy (principal)
CPT/HCPCS: 36415; 80048

== ENCOUNTER 2024-08-13 12:12 | Outpatient (AMB) | payer MEDICARE, SELFPAY ==
[2024-08-13 12:29] VITALS: BP 130/62; PULSE 70; BMI 22.2
--- NOTE | 2024-08-13 12:29 | MHC.OFFVIS ---
Vital Signs 08/13/24 12:29 Height 5 ft 2 in Weight 121 lb 4.068 oz BMI 22.2 BP 130/62 Blood Pressure Location Lt brachial Position Sitting Pulse 70 Pulse Source Pulse Oximeter Intake Visit Reasons: f/up MRI Allergies latex Allergy (Intermediate, Verified 01/30/24 17:41) hives narcotics Allergy (Intermediate, Uncoded 01/15/24 04:53) Unknown Medication List - Last Reconciled 08/13/24 by Justus Lilly MD amlodipine 5 mg PO DAILY apixaban (Eliquis) 5 mg PO BID atorvastatin 10 mg PO DAILY dicyclomine 20 mg PO Q6H PRN metoprolol succinate ER 25 mg PO DAILY HPI Comments Details: Sheyla returns for follow-up. To recall, she was originally seen in consultation regarding abnormal EKG. She came for colonoscopy and the EKG was abnormal and that led to cardiac referral. Patient herself did not have any symptoms or cardiac history. Suspected to have chronic hypertension but not treated. Then started amlodipine. She underwent workup including echocardiogram/stress test and diagnosed to have apical variant hypertrophic cardiomyopathy. Then it seems that she had hospitalization for atrial fibrillation rapid rate and started on beta-blockers. Overall, she states she feels okay. Nonspecific tiredness. She has completed a cardiac MRI. Issues with Eliquis as it is very expensive. Apparently she pays more than 650 dollars every 3 months. [facility] Medical History Diverticulitis IBS (irritable bowel syndrome) Hyperlipemia Surgical History History of shoulder surgery History of hand surgery Hx of colonoscopy Family History Mother Atrial fibrillation Social History (Updated 04/08/24 @ 10:45 by Ni Estevez CMA) Household Members: Spouse Housing: House Do you presently have visiting nurse or other home services: No Alcohol intake: current Alcohol intake frequency: holidays/special occasions only Patient Tobacco Use Status: Former Tobacco user service: No Review of Systems Const Denies weakness ENT Denies dizziness Card Denies chest pain, Denies chest pain with activity, Denies syncope, Denies rapid heart rate, Denies pedal edema, Denies edema, Denies leg edema, Denies lightheadedness, Denies palpitations, Denies dyspnea, Denies dyspnea on exertion and Denies orthopnea Resp Denies cough, Denies dyspnea and Denies dyspnea on exertion GI Denies hematochezia and Denies change in stool character Musc Denies abnormal gait, Denies muscle cramps, Denies muscle weakness, Denies numbness, Denies radiating pain into limb and Denies tingling Neuro Denies abnormal gait, Denies dizziness, Denies syncope, Denies numbness, Denies tingling and Denies weakness Endo Denies palpitations Physical Exam Vital Signs: Last Vital Signs Pulse 70 08/13/24 12:29 BP 130/62 08/13/24 12:29 BMI result Body Mass Index 22.2 Const General: comfortable and no acute distress Orientation/consciousness: patient oriented x3 HEENT Other: Unremarkable Head: Yes normal to inspection Neck Neck: Yes normal visual inspection Chest Chest palpation & inspection: normal inspection of the chest Resp Auscultation: clear to auscultation bilaterally Cardio Palpation: normal PMI Heart sounds: S1 normal heart sound present, S2 normal heart sound present, no gallops, no murmurs and no rubs GI Palpation (GI): Soft to palpation Back/Spine/Pelvis Other: unremarkable Skin General skin exam: no rashes or lesions noted Neuro General: patient oriented x3 Extrem General: Yes normal to inspection Psych Mental Status: mental status grossly normal Assessment & Plan Assessment & Plan (1) Apical variant hypertrophic cardiomyopathy: Code(s): I42.2 - Other hypertrophic cardiomyopathy Category: Medical Plan: Cardiac studies reviewed. In the echocardiogram, there is clear evidence of apical hypertrophic cardiomyopathy. Myocardial perfusion imaging study was normal. In the ETT component, no chest discomfort; 7 METS exercise capacity; hypertensive blood pressure response. In the cardiac MRI, again confirmation of apical hypertrophic cardiomyopathy; no significant fibrosis. With regard to treatment, no specific medications required at this time. We discussed family screening last time as well as today. We also discussed about Genetics referral but she is not interested in that part. Overall, she has got no high-risk markers and we can monitor this clinically. (2) Paroxysmal atrial fibrillation: Code(s): I48.0 - Paroxysmal atrial fibrillation Category: Medical Plan: Was hospitalized for the same last year. Continue beta-blockers. She also complains of tiredness and hence no changes dosing. Continue Eliquis. We will look into the cost issue and check with her insurance. (3) Hypertension: Code(s): I10 - Essential (primary) hypertension Category: Medical Plan: On Amlodipine. Coding Level of Care Code Est Pt Level 4 (51328) Complex EM visit Add On G2211 Diagnoses Apical variant hypertrophic cardiomyopathy I42.2 Paroxysmal atrial fibrillation I48.0 Hypertension I10
== END 2024-08-13 12:44 | disposition home or self-care (01) ==
PROVIDERS: PCP Internal Medicine; Visit Provider Internal Medicine
DX: I42.2 Other hypertrophic cardiomyopathy (principal); I48.0 Paroxysmal atrial fibrillation; I10 Essential (primary) hypertension
CPT/HCPCS: 99214; G2211

== ENCOUNTER → 2024-08-13 12:12 | Outpatient (BNVA) | payer MEDICARE, SELFPAY | PROVIDERS: PCP Internal Medicine; Visit Provider Internal Medicine | DX: I42.2 Other hypertrophic cardiomyopathy (principal); I48.0 Paroxysmal atrial fibrillation; I10 Essential (primary) hypertension | CPT/HCPCS: 99212 ==

== ENCOUNTER 2025-02-19 10:47 | Outpatient (AMB) | payer MEDICARE, SELFPAY ==
[2025-02-19 10:53] VITALS: BP 122/68; PULSE 51; BMI 22.0
--- NOTE | 2025-02-19 10:53 | MHC.OFFVIS ---
Vital Signs 02/19/25 10:53 Height 5 ft 2 in Weight 120 lb 5.958 oz BMI 22.0 BP 122/68 Blood Pressure Location Lt brachial Position Sitting Pulse 51 Pulse Source Monitor Intake Visit Reasons: 6 mth f/up [employer] Required: No Accompanied by: Self / Same As Patient Allergies latex Allergy (Intermediate, Verified 02/19/25 10:56) hives narcotics Allergy (Intermediate, Uncoded 01/15/24 04:53) Unknown Medication List - Last Reconciled 02/19/25 by Justus Lilly MD amlodipine 5 mg PO DAILY apixaban (Eliquis) 5 mg PO BID atorvastatin 10 mg PO DAILY dicyclomine 20 mg PO Q6H PRN metoprolol succinate ER 25 mg PO DAILY HPI Comments Details: Sheyla returns for follow-up. To recall, she was originally seen in consultation regarding abnormal EKG. She came for colonoscopy and the EKG was abnormal and that led to cardiac referral. Patient herself did not have any symptoms or cardiac history. Suspected to have chronic hypertension but not treated. Then started amlodipine. She underwent workup including echocardiogram/stress test and diagnosed to have apical variant hypertrophic cardiomyopathy. Then had hospitalization for atrial fibrillation rapid rate and started on beta-blockers. Since last seen, she states she feels well. No new concerns from cardiac. No specific symptoms either. No recurring atrial fibrillation. [facility] Medical History Diverticulitis IBS (irritable bowel syndrome) Hyperlipemia Surgical History History of shoulder surgery History of hand surgery Hx of colonoscopy Family History Mother Atrial fibrillation Social History (Updated 04/08/24 @ 10:45 by Ni Estevez CMA) Household Members: Spouse Housing: House Do you presently have visiting nurse or other home services: No Alcohol intake: current Alcohol intake frequency: holidays/special occasions only Patient Tobacco Use Status: Former Tobacco user service: No Review of Systems Const Denies daytime sleepiness, Denies difficulty sleeping, Denies snoring, Denies stops breathing during sleep and Denies weakness Card Denies chest pain, Denies rapid heart rate, Denies irregular heart rhythm, Denies claudication, Denies leg edema, Denies lightheadedness, Denies palpitations, Denies dyspnea, Denies dyspnea on exertion, Denies orthopnea, Denies paroxysmal nocturnal dyspnea and Denies slow heart rate Resp Denies cough, Denies dyspnea, Denies dyspnea on exertion and Denies snoring GI Reports no additional complaints, Denies hematochezia, Denies change in stool character and Denies dyspepsia Musc Denies abnormal gait, Denies muscle weakness and Denies numbness Neuro Denies abnormal gait, Denies numbness and Denies weakness Endo Denies palpitations Physical Exam Vital Signs: Last Vital Signs Pulse 51 02/19/25 10:53 BP 122/68 02/19/25 10:53 BMI result Body Mass Index 22.0 Const General: comfortable and no acute distress Orientation/consciousness: patient oriented x3 HEENT Other: Unremarkable Head: Yes normal to inspection Neck Neck: Yes normal visual inspection Chest Chest palpation & inspection: normal inspection of the chest Resp Auscultation: clear to auscultation bilaterally Cardio Palpation: normal PMI Heart sounds: S1 normal heart sound present, S2 normal heart sound present, no gallops, no murmurs and no rubs GI Palpation (GI): Soft to palpation Back/Spine/Pelvis Other: unremarkable Skin General skin exam: no rashes or lesions noted Neuro General: patient oriented x3 Extrem General: Yes normal to inspection Psych Mental Status: mental status grossly normal Office Procedures EKG Details: EKG with sinus bradycardia at 51/Min; possible left atrial enlargement; rightward axis; left ventricular hypertrophy with repolarization changes; [place]. [id number], Complete Assessment & Plan Assessment & Plan (1) Apical variant hypertrophic cardiomyopathy: Code(s): I42.2 - Other hypertrophic cardiomyopathy Category: Medical Plan: Cardiac studies reviewed. Echocardiogram with apical hypertrophic cardiomyopathy. Myocardial perfusion imaging study was normal. In the ETT component, no chest discomfort; 7 METS exercise capacity; hypertensive blood pressure response. In the cardiac MRI, again confirmation of apical hypertrophic cardiomyopathy; no significant fibrosis. With regard to treatment, no specific medications required at this time. Family screening has been discussed in the past. Also have discussed Genetics but not interested. She has got no high-risk markers and we can monitor this clinically. (2) Paroxysmal atrial fibrillation: Code(s): I48.0 - Paroxysmal atrial fibrillation Category: Medical Plan: Stable on the current regimen. Continue beta-blockers and Eliquis. (3) Hypertension: Code(s): I10 - Essential (primary) hypertension Category: Medical Plan: On Amlodipine. Plan Discussion Notes During the visit, we discussed the management of atrial fibrillation, emphasizing the importance of continuing Eliquis and also addressing cost concerns. Patient was informed and verbally consented to the use of an ambient scribe for clinic note documentation during this visit. Patient Instructions: - Continue taking Eliquis as prescribed. - If experiencing atrial fibrillation, consider taking an extra Metoprolol tablet before seeking emergency care. - Engage in regular physical activity to improve conditioning. Coding Level of Care Code Est Pt Level 4 (08402) Complex EM visit Add On G2211 Diagnoses Apical variant hypertrophic cardiomyopathy I42.2 Paroxysmal atrial fibrillation I48.0 Hypertension I10 CPT Codes EKG - CPT: [id number], Complete ([id number])
== END 2025-02-19 11:12 | disposition home or self-care (01) ==
LOC: HO.HCS 10:48
PROVIDERS: PCP Internal Medicine; Visit Provider Internal Medicine
DX: I42.2 Other hypertrophic cardiomyopathy (principal); I48.0 Paroxysmal atrial fibrillation; I10 Essential (primary) hypertension
CPT/HCPCS: 93010; 99214; G2211

== ENCOUNTER → 2025-02-19 10:47 | Outpatient (BNVA) | payer MEDICARE, SELFPAY | PROVIDERS: PCP Internal Medicine; Visit Provider Internal Medicine | DX: I42.2 Other hypertrophic cardiomyopathy (principal); I48.0 Paroxysmal atrial fibrillation; I10 Essential (primary) hypertension; R00.1 Bradycardia, unspecified; R94.31 Abnormal electrocardiogram [ECG] [EKG]; I51.7 Cardiomegaly | CPT/HCPCS: 93005; 99212 ==